=== PATIENT | female | born 1985 | race Caucasian/White ===

== ENCOUNTER → 2017-11-16 08:36 | Outpatient (BNVA) | payer MEDICARE, MEDICAID, SELFPAY | PROVIDERS: Visit Provider Psychiatry & Neurology Neurology | DX: G43.109 Migraine with aura, not intractable, without status migrainosus (principal); G43.009 Migraine without aura, not intractable, without status migrainosus | CPT/HCPCS: 99205; 99215 ==

== ENCOUNTER → 2017-12-28 13:14 | Outpatient (BNVA) | payer MEDICARE, MEDICAID, SELFPAY | PROVIDERS: PCP Family Medicine; Visit Provider Psychiatry & Neurology Neurology | DX: G43.109 Migraine with aura, not intractable, without status migrainosus (principal); G43.009 Migraine without aura, not intractable, without status migrainosus; T50.2X5A Adverse effect of carbonic-anhydrase inhibitors, benzothiadiazides and other diuretics, initial encounter; R20.2 Paresthesia of skin | CPT/HCPCS: 99214 ==

== ENCOUNTER → 2018-04-20 14:02 | Outpatient (BNVA) | payer MEDICARE, MEDICAID, SELFPAY | PROVIDERS: PCP Family Medicine; Visit Provider Nurse Practitioner Adult Health | DX: G43.009 Migraine without aura, not intractable, without status migrainosus (principal) | CPT/HCPCS: 99213 ==

== ENCOUNTER 2018-06-02 09:48 | Outpatient (REF) | payer MEDICARE, MEDICAID, SELFPAY ==
[2018-06-02 12:27] LABS: Hemoglobin A1C 5.6 % (4.5-6.2)
[2018-06-02 12:34] LABS: Glucose 88 mg/dL (70-100); TSH (W/Ref FT4) 1.78 uIU/mL (0.358-3.74)
== END 2018-06-02 10:08 ==
LOC: NCHCN 09:48
PROVIDERS: PCP Family Medicine; Visit Provider Family Medicine
DX: E03.9 Hypothyroidism, unspecified (principal); E28.2 Polycystic ovarian syndrome; R73.01 Impaired fasting glucose
CPT/HCPCS: 82947; 83036; 84443

== ENCOUNTER → 2018-06-19 10:29 | Outpatient (BNVA) | payer MEDICARE, MEDICAID, SELFPAY | PROVIDERS: PCP Family Medicine; Visit Provider Nurse Practitioner Adult Health | DX: G43.009 Migraine without aura, not intractable, without status migrainosus (principal); G43.109 Migraine with aura, not intractable, without status migrainosus | CPT/HCPCS: 99213 ==

== ENCOUNTER → 2018-12-18 11:04 | Outpatient (BNVA) | payer MEDICARE, MEDICAID, SELFPAY | PROVIDERS: PCP Family Medicine; Referring Provider Family Medicine; Visit Provider Nurse Practitioner Adult Health | DX: G43.001 Migraine without aura, not intractable, with status migrainosus (principal); R42 Dizziness and giddiness | CPT/HCPCS: 99213 ==

== ENCOUNTER → 2019-02-20 12:33 | Outpatient (BNVA) | payer MEDICARE, MEDICAID, SELFPAY | PROVIDERS: PCP Family Medicine; Referring Provider Family Medicine; Visit Provider Nurse Practitioner Adult Health | DX: G43.009 Migraine without aura, not intractable, without status migrainosus; G43.109 Migraine with aura, not intractable, without status migrainosus | CPT/HCPCS: 99213 ==

== ENCOUNTER → 2020-01-16 08:24 | Outpatient (BNVA) | payer MEDICARE, MEDICAID, SELFPAY | PROVIDERS: PCP Family Medicine; Referring Provider Family Medicine; Visit Provider Nurse Practitioner Adult Health | DX: G43.109 Migraine with aura, not intractable, without status migrainosus (principal); G43.009 Migraine without aura, not intractable, without status migrainosus | CPT/HCPCS: 99213; 99441 ==

== ENCOUNTER → 2020-09-01 12:32 | Outpatient (BNVA) | payer MEDICARE, MEDICAID, SELFPAY | PROVIDERS: PCP Family Medicine; Referring Provider Family Medicine; Visit Provider Nurse Practitioner Adult Health | DX: G43.109 Migraine with aura, not intractable, without status migrainosus (principal); G43.009 Migraine without aura, not intractable, without status migrainosus | CPT/HCPCS: 99213 ==

== ENCOUNTER 2020-09-19 14:08 | Outpatient (REF) | payer MEDICARE, MEDICAID, SELFPAY ==
[2020-09-19 19:28] LABS: Hemoglobin A1C 5.9 % (<5.7)
[2020-09-19 19:32] LABS: Anion Gap 9.7 mmol/L (3-11); BUN 13 mg/dL (7-18); CO2 22.3 mmol/L (21.0-32.0); CREATININE 0.8 mg/dL (0.55-1.02); Calcium 8.8 mg/dL (8.5-10.1); Chloride 109 mmol/L (98-107); Glucose 108 mg/dL (74-106); Sodium 141 mmol/L (136-145); TSH (W/Ref FT4) 0.79 uIU/mL (0.36-3.74)
== END 2020-09-19 14:09 | disposition home or self-care (01) ==
LOC: NCHCN 14:08
PROVIDERS: PCP Family Medicine; Visit Provider Family Medicine
DX: E03.9 Hypothyroidism, unspecified (principal); E66.9 Obesity, unspecified; R73.09 Other abnormal glucose
CPT/HCPCS: 80048; 83036; 84443

== ENCOUNTER → 2020-10-28 10:15 | Outpatient (BNVA) | payer MEDICARE, MEDICAID, SELFPAY | PROVIDERS: PCP Family Medicine; Referring Provider Family Medicine; Visit Provider Psychiatry & Neurology Neurology | DX: G43.109 Migraine with aura, not intractable, without status migrainosus (principal); G43.009 Migraine without aura, not intractable, without status migrainosus; E03.9 Hypothyroidism, unspecified | CPT/HCPCS: 99213 ==

== ENCOUNTER 2021-02-22 08:05 | Inpatient (IN) | payer MEDICARE, MEDICAID, SELFPAY ==
[2021-02-22] VITALS (46 sets, daily range): BP systolic 120–170; BP diastolic 71–119; PULSE 95–144; RESP 14–33; TEMP 36.2–38.2; O2SAT 92–99; BMI 38.3
--- NOTE | 2021-02-22 08:22 | W.ED.GENAD ---
Discharge Plan Disposition Patient Disposition: [facility] INPATIENT Condition: Serious Discharge Details Clinical Impression: Acute appendicitis Primary Care Provider: Cora Philip ED Provider: Saravanan Ascencio Home Meds and New Rx's Prescriptions: No Action magnesium oxide 400 mg (241.3 mg magnesium) tablet 400 mg PO DAILY RF: 0 vitamin B complex [B Complex 1] tablet 1 tab PO DAILY RF: 0 prochlorperazine maleate 5 mg tablet 5 mg PO Q8H PRN PRN (Reason: anxiety) Qty: 60 RF: 0 acetazolamide 250 mg tablet See Rx Instructions PO BID Qty: 270 RF: 3 levothyroxine 88 MCG tablet 88 mcg PO DAILY RF: 0 Hair,Skin and Nails 1 EACH tablet 1 ea PO DAILY RF: 0 levalbuterol tartrate [Xopenex HFA] 15 GM HFA aerosol inhaler 45 mcg Inhalation Q6H PRN RF: 0 omega-3 fatty acids-fish oil 1 EACH capsule 1 ea PO DAILY RF: 0 Medical Decision Making 35-year-old female who reports bilateral lower abdominal pain, worsening, mild constipation, over the past 2 days. Unfortunately she is a rather vague and poor historian. She does appear uncomfortable. Blood pressure is elevated, pulse in the 140s, she is afebrile. Diffuse lower abdominal discomfort but there is no McBurney point tenderness, Virgen sign, rebound or rigidity. Given her body habitus, exam is somewhat difficult. Fortunately ultrasound is here and will obtain ultrasound pelvic-transvaginal for better evaluation of potential torsion. Differential includes but includes torsion, appendicitis, diverticulitis, colitis, UTI,, nephritis, etc. Will obtain IV access and routine laboratory values Ultrasound is unremarkable Patient receiving 1 L IV fluid and she did get 30 IV Toradol. Laboratory values reveal a leukocytosis of 17.46. Urinalysis unremarkable. In the setting of leukocytosis, lower abdominal pain, will obtain CT of the abdomen and pelvis. Heart rate now 118. Patient reports pain is tolerable with the Toradol given. CT imaging reveals acute appendicitis. Patient given IV Zosyn. Patient reports pain is returning. 2 mg IV morphine given. Case discussed with Dr. Mccormick who is agreeable to admission and will personally evaluate the patient in the ER. Obtained a rapid COVID swab. This documentation was generated using [employer] system, please disregard any oddities of phrase or misspellings. Medical Records Medical records reviewed: Yes I reviewed the patient's medical records. Imaging Data Radiologic Study: Attestation: I personally reviewed and interpreted this imaging study as follows: Imaging: Ultrasound Radiologist's impression: PROCEDURE INFORMATION: Exam: US Retroperitoneal Limited, Kidneys Exam date and time: 02/22/2021 8:39 AM Age: 35 years old Clinical indication: Abdominal pain; Lower abdomen TECHNIQUE: Imaging protocol: Real-time ultrasound of the retroperitoneum with image documentation. Examination was focused on the kidneys. COMPARISON: No relevant prior studies available. FINDINGS: Right kidney: Right kidney measures 9.9 cm in length. No hydronephrosis. Left kidney: Incompletely visualized left kidney measures 10.1 cm in length. No hydronephrosis. Bladder: Nondistended and not visualized. IMPRESSION: No acute sonographic abnormality in the visualized kidneys. PROCEDURE INFORMATION: Exam: US Pelvis Complete, Transabdominal and US Pelvis, Transvaginal Exam date and time: 02/22/2021 8:39 AM Age: 35 years old Clinical indication: Abdominal pain; Lower abdomen TECHNIQUE: Imaging protocol: Real-time transabdominal and transvaginal pelvic ultrasound (complete) with image documentation. Transvaginal imaging was used for better evaluation of the endometrium, adnexa, and/or cervix. JONATAN CHOI Preliminary Radiology Report HAT AND CAP OPENER (QA) DISCREPANCY? If there is a discrepancy between the preliminary and final interpretation, please notify ad via [email or web address]. If you do not have access to our QA portal, call our QA team at [phone] CONFIDENTIALITY STATEMENT This report is intended only for the use of the referring physician, and only in accordance with law, If you received this in error, call [phone] Page 2 of 2 COMPARISON: No relevant prior studies available. FINDINGS: Uterus: Endometrium measures 6 mm in diameter and contains a 2 mm cyst. Uterus measures 6.8 x 4.4 x 5.0 cm. Cervix: Nabothian cysts Right ovary/adnexa: Right ovary measures 2.9 x 2.5 by 3.2 cm. Subcentimeter follicles. Right ovarian blood flow demonstrated. Left ovary/adnexa: Left ovary measures 2.5 x 2.4 x 3.1 cm. Multiple follicles. Left ovarian blood flow demonstrated. Intraperitoneal space: No significant free fluid. IMPRESSION: No significant sonographic abnormality in the visualized pelvis. Radiologic Study #2: Attestation: I personally reviewed and interpreted this imaging study as follows: Imaging: CT Scan Radiologist's impression: PROCEDURE INFORMATION: Exam: CT Abdomen And Pelvis With Contrast Exam date and time: 02/22/2021 9:49 AM Age: 35 years old Clinical indication: Other: Low abd pain, wbc 17, constipation TECHNIQUE: Imaging protocol: Computed tomography of the abdomen and pelvis with contrast. Radiation optimization: All CT scans at this facility use at least one of these dose optimization techniques: automated exposure control; mA and/or kV adjustment per patient size (includes targeted exams where dose is matched to clinical indication); or iterative reconstruction. Contrast material: OMNIPAQUE 350; Contrast volume: 125 ml; Contrast route: INTRAVENOUS (IV); COMPARISON: US PELVIS TRANSVAGINAL 02/22/2021 8:52 AM FINDINGS: Lungs: Mild interstitial prominence. Liver: Fatty infiltration of the liver. Gallbladder and bile ducts: Dilated gallbladder, without biliary ductal dilatation. Pancreas: No pancreatic mass or ductal dilatation. Spleen: No splenomegaly. Adrenal glands: Unremarkable adrenals. Kidneys and ureters: Normal renal morphology. Mild dilatation of the right pelvicaliceal system, without significant ureteral dilatation. Stomach and bowel: Mild wall thickening in the nondistended stomach. Mild bowel dilatation without a focal transition zone. Prominent stool. Diverticula, without pericolonic inflammation. Appendix: Enlarged appendix measuring 11 mm in diameter with wall thickening , prominent infiltration of periappendiceal fat, and surrounding fluid; consistent with acute appendicitis. Intraperitoneal space: Small quantity of free fluid. Vasculature: Unrema normal caliber of the abdominal aorta. JONATAN CHOI Preliminary Radiology Report HAT AND CAP OPENER (QA) DISCREPANCY? If there is a discrepancy between the preliminary and final interpretation, please notify [facility] via [email or web address]. If you do not have access to our QA portal, call our QA team at [phone] CONFIDENTIALITY STATEMENT This report is intended only for the use of the referring physician, and only in accordance with law, If you received this in error, call [phone] Page 2 of 2 Lymph nodes: Subcentimeter lymph nodes. Urinary bladder: Nondistended bladder with minimal wall thickening. Reproductive: Follicular change in the ovaries. Bones/joints: Schmorl's nodes, vertebral endplate irregularity, and marginal osteophytes. IMPRESSION: 1. Enlarged appendix measuring 11 mm in diameter with wall thickening , prominent infiltration of periappendiceal fat, and surrounding fluid; consistent with acute appendicitis. 2. Mild dilatation of the right pelvicaliceal system, without significant ureteral dilatation. 3. Additional findings as described above Lab Data Lab results reviewed: Yes I reviewed the patient's lab results. Labs: Laboratory Tests Range/Units 02/22/21 02/22/21 02/22/21 08:45 08:45 10:20 WBC (4.4-10.8) 10^3/uL 17.46 H RBC (3.93-5.22) 10^6/uL 5.25 H Hgb (11.2-15.7) g/dL 14.5 Hct (36.0-46.0) % 45.6 MCV (80-95) fL 86.9 MCH (27.0-33.0) pg 27.6 MCHC (32.0-36.0) % 31.8 L RDW (11.7-14.6) % 12.8 Plt Count (130-400) 10^3/uL MPV (8.0-11.0) fL Immature Gran % 0.5 Neutrophils % 85.3 Lymphocytes % 9.1 Monocytes % 4.6 Eosinophils % 0.2 Basophils % 0.3 Nucleated RBC % % 0 Absolute Neutrophils (1.2-6.7) 10^3/uL 14.89 H Absolute Lymphocytes (1.2-3.4) 10^3/uL 1.59 Absolute Monocytes (0.1-0.8) 10^3/uL 0.80 Absolute Eosinophils (0.0-0.7) 10^3/uL 0.03 Absolute Basophils (0.0-0.2) 10^3/uL 0.05 RBC Morphology Normal Sodium (136-145) mmol/L 138 Potassium (3.5-5.1) mmol/L 3.5 Chloride (98-107) mmol/L 103 Carbon Dioxide (21.0-32.0) mmol/L 20.3 L Anion Gap (3-11) mmol/L 14.7 H BUN (7-18) mg/dL 9 Creatinine (0.55-1.02) mg/dL 1.0 Estimated GFR/1.73 m2 (mL/min/1.73m2) >= 60.00 Glucose (74-106) mg/dL 191 H Calcium (8.5-10.1) mg/dL 8.9 Total Bilirubin (0.2-1.0) mg/dL 0.9 AST (15-37) U/L 22 ALT (14-59) U/L 60 H Alkaline Phosphatase (46-116) U/L 85 Total Protein (6.4-8.2) g/dL 8.9 H Albumin (3.4-5.0) g/dL 4.3 Lipase (73-393) U/L 53 Urine Color (Yellow) Yellow Urine Clarity (Clear) Clear Urine pH (5-8) 6.5 Ur Specific [place] (1.005-1.025) 1.025 Urine Protein (Negative) mg/dL Negative Urine Ketones (Negative) mg/dL Trace H Urine Blood (Negative) Trace-intact H Urine Nitrite (Negative) Negative Urine Bilirubin (Negative) Negative Urine Urobilinogen (Up TO 0.2) EU/dL 1.0 H Ur Leukocyte Esterase (Negative) Negative Urine RBC (0-2) HPF 0-2 Urine WBC (0-5) HPF Negative Ur Epithelial Cells (Negative) HPF Few Urine Crystals (Negative) HPF Negative Urine Bacteria (Negative) HPF Negative Urine Casts (Negative) LPF Negative Urine Mucus (Negative) Moderate Ur Culture Indicated? No Urine Glucose (Negative) mg/dL Negative COVID-19 Source Range/Units 02/22/21 11:35 WBC (4.4-10.8) 10^3/uL RBC (3.93-5.22) 10^6/uL Hgb (11.2-15.7) g/dL Hct (36.0-46.0) % MCV (80-95) fL MCH (27.0-33.0) pg MCHC (32.0-36.0) % RDW (11.7-14.6) % Plt Count (130-400) 10^3/uL MPV (8.0-11.0) fL Immature Gran % Neutrophils % Lymphocytes % Monocytes % Eosinophils % Basophils % Nucleated RBC % % Absolute Neutrophils (1.2-6.7) 10^3/uL Absolute Lymphocytes (1.2-3.4) 10^3/uL Absolute Monocytes (0.1-0.8) 10^3/uL Absolute Eosinophils (0.0-0.7) 10^3/uL Absolute Basophils (0.0-0.2) 10^3/uL RBC Morphology Sodium (136-145) mmol/L Potassium (3.5-5.1) mmol/L Chloride (98-107) mmol/L Carbon Dioxide (21.0-32.0) mmol/L Anion Gap (3-11) mmol/L BUN (7-18) mg/dL Creatinine (0.55-1.02) mg/dL Estimated GFR/1.73 m2 (mL/min/1.73m2) Glucose (74-106) mg/dL Calcium (8.5-10.1) mg/dL Total Bilirubin (0.2-1.0) mg/dL AST (15-37) U/L ALT (14-59) U/L Alkaline Phosphatase (46-116) U/L Total Protein (6.4-8.2) g/dL Albumin (3.4-5.0) g/dL Lipase (73-393) U/L Urine Color (Yellow) Urine Clarity (Clear) Urine pH (5-8) Ur Specific [place] (1.005-1.025) Urine Protein (Negative) mg/dL Urine Ketones (Negative) mg/dL Urine Blood (Negative) Urine Nitrite (Negative) Urine Bilirubin (Negative) Urine Urobilinogen (Up TO 0.2) EU/dL Ur Leukocyte Esterase (Negative) Urine RBC (0-2) HPF Urine WBC (0-5) HPF Ur Epithelial Cells (Negative) HPF Urine Crystals (Negative) HPF Urine Bacteria (Negative) HPF Urine Casts (Negative) LPF Urine Mucus (Negative) Ur Culture Indicated? Urine Glucose (Negative) mg/dL COVID-19 Source Nasal/Nares HPI General Mode of arrival: ambulatory. Date/Time Provider Initiated Documentation: 02/22/21 08:11. Limitations to Documentation: no limitations. Information obtained by: patient. HPI Narrative: This is a 35-year-old female, past medical history that includes asthma, PCOS, depression, hypothyroidism, obesity, migraines, presenting to the ER for 2-day history of lower abdominal, bilateral groin pain that she states radiates to her rectum especially when trying to move her bowels. Patient states all the muscles feel tight. She denies recent illness or trauma. She is unsure whether or not she has had a fever. Denied chills, chest pain, shortness of breath, upper abdominal pain, vomiting. Does report mild nausea. Reports chronic low back pain that is unchanged reports that her last menstrual cycle was approximately 1 month ago. Denies any abnormal vaginal bleeding or discharge. Patient states that she is not sexually active and has never been sexually active. Patient reports that her last normal bowel movement was 3 days ago, 2 days ago had a small, firm, hard, painful bowel movement. Denies any blood in her stool. Patient took a single Gas-X yesterday without any relief of her symptoms. Patient reports the pain is moderate to severe. Denies previous abdominal surgery. Denies any symptoms previous like this. Unfortunately she is a rather vague and poor historian, has a difficult time articulating exactly what she is feeling. Related Data Home Medications Medication Instructions Recorded Confirmed levalbuterol tartrate [Xopenex Hfa] 45 mcg INHALATION Q6H PRN inhaler 10/03/17 02/22/21 levothyroxine 88 mcg PO DAILY tab-cap 10/03/17 02/22/21 multivitamin with minerals [Hair, 1 ea PO DAILY 10/03/17 02/22/21 Skin And Nails] omega-3 fatty acids-fish oil 1 ea PO DAILY 10/03/17 02/22/21 magnesium oxide 400 mg (241.3 mg 400 mg PO DAILY tab 11/16/17 02/22/21 magnesium) tablet vitamin B complex 1 tab PO DAILY 04/20/18 02/22/21 prochlorperazine maleate 5 mg 5 mg PO Q8H PRN PRN #60 tab 09/01/20 02/22/21 tablet acetazolamide 250 mg tablet See Rx Instructions PO BID #270 tab 10/28/20 02/22/21 Previous Rx's Medication Instructions Recorded prochlorperazine maleate 5 mg 5 mg PO Q8H PRN PRN #60 tab 09/01/20 tablet acetazolamide 250 mg tablet See Rx Instructions PO BID #270 tab 10/28/20 Allergies Allergy/AdvReac Type Severity Reaction Status Date / Time house dust Allergy Mild Verified 02/22/21 08:24 pollen extracts Allergy Unverified 02/22/21 08:24 wheat AdvReac Intermediate Rash Verified 02/22/21 08:24 Review of Systems Constitutional Constitutional: Denies fatigue and Reports fever(s) (Unknown) Cardiovascular Cardiovascular: Denies chest pain and Denies dyspnea Respiratory Respiratory: Denies cough and Denies dyspnea Gastrointestinal Gastrointestinal: Reports abdominal pain, Reports constipation, Denies diarrhea, Reports nausea and Denies vomiting Genitourinary Genitourinary: Denies abnormal vaginal bleeding, Denies dysuria and Denies vaginal discharge Musculoskeletal Musculoskeletal: Reports back pain Integumentary/Breasts Skin/Breast: Denies rash Endocrine Endocrine: Denies fatigue Hematologic/Lymphatic Hematologic/Lymphatic: Denies easy bleeding and Denies easy bruising PFSH All Active Problems (Updated 02/22/21 @ 12:10 by SHAWN Neville) Acute appendicitis (Acute) Gluten intolerance (Chronic) Depression (Chronic) Polycystic ovarian syndrome (Chronic) Asthma (Chronic) Hypothyroidism (Chronic) Obesity (BMI 30-39.9) (Chronic) Migraine headache without aura (Chronic) Migraine aura without headache (Chronic) Surgical History Other dental procedure status wisdom tooth extraction Family History Mother Headache Diabetes Hypertension Thyroid disease Depression Fibromyalgia Social History Smoking/Tobacco Use Status: Never Smoking risk assessment performed?: Yes Alcohol Intake: current Alcohol Intake frequency: holidays/special occasions only Drug use: Never Substance use type: does not use Household members: family Housing: apartment Current gender identity: female How often do you get together with friends or relatives?: decline to answer Additional Social history: She lives in an apartment below her mother. She does not drive (has no car). Exam Const General: cooperative, healthy appearing, no acute distress and other (Appears uncomfortable) Orientation: alert and awake HENKY Head: normal to inspection, normocephalic and atraumatic Face and sinus: normal facial exam Mouth: moist mucous membranes Eyes General: appearance normal, both eyes and all related structures Conjunctivae: conjunctivae normal Neck Neck: normal visual inspection, trachea midline and supple Resp Effort & Inspection: normal respiratory effort and able to speak in complete sentences Auscultation: clear to auscultation bilaterally Cardio Rate: regular rate Rhythm: regular rhythm GI Inspection: normal to inspection and obesity Palpation: soft, not firm, no guarding, no pulsatile masses and tender (Diffuse, mild, lower) Auscultation: normal bowel sounds Back/Spine/Pelvis Back: No back tenderness Skin General skin exam: no rashes or lesions noted Neuro General: patient alert, patient awake, moves all extremities and no focal motor deficits Cognition: normal cognition Speech: speech normal Gait: normal gait Sensory Exam: no sensory deficits noted Psych Appearance: grossly normal Mental Status: mental status grossly normal Critical Care Time Critical Care Time Critical Care Time: Yes Total Critical Care Time: 35 Attestation: Upon my evaluation, this patient had a high probability of clinically significant, life-threatening deterioration due to their current medical conditions, which required my direct attention, intervention, and personal management. I have personally provided greater than 30 minutes of critical care time exclusive of the time spend on separately billable procedures. Time includes obtaining a history, examining the patient, pulse oximetry, review of laboratory data, radiology results, discussion with consultants, arranging urgent treatment with development of a management plan, evaluation of patient's response to treatment, and monitoring for potential decompensation. Interventions were performed as documented above.
--- NOTE | 2021-02-22 08:30 | DI.US_ITS ---
Exam(s) US PELVIS TRANSVAGINAL EXAM: US PELVIS TRANSVAGINAL CLINICAL HISTORY: pelvic pain TECHNIQUE: Transabdominal and transvaginal imaging was performed using standard protocol. COMPARISON: No exams were available for comparison FINDINGS: KIDNEYS: Kidneys are symmetric in size. No evidence of renal calculi. No evidence of hydronephrosis. No renal mass or cyst identified. Transabdominal images are limited by lack of bladder distention. UTERUS: Anteverted. 6.8 x 4.4 x 5 cm. Endometrium: 6 millimeters Myometrium: Unremarkable. Cervix: Tiny nabothian cyst. OVARIES: Right: Cyst or mass: None. Left: Cyst or mass: None. DOPPLER: Color: Symmetric and uniform flow to both ovaries. No hyperemia. Duplex: Normal ovarian arterial waveforms visualized. CUL-DE-SAC: Free fluid: None. IMPRESSION: 1. Normal-appearing uterus with endometrial stripe within normal limits. 2. Unremarkable bilateral ovaries. DATA REPOSITORY:
[2021-02-22 09:02] LABS: Abs Immature Grans 0.09 10^3/uL (0.0-0.06); Absolute Lymphocyte Count 1.59 10^3/uL (1.2-3.4); Basophils % 0.3; Eosinophils % 0.2; HCT 45.6 % (36.0-46.0); HGB 14.5 g/dL (11.2-15.7); Immature Grans % 0.5; Lymphocytes % 9.1; MCH 27.6 pg (27.0-33.0); MCHC 31.8 % (32.0-36.0); MCV 86.9 fL (80-95); Monocytes % 4.6; Neutrophils % 85.3; Nucleated RBC 0 %; RBC 5.25 10^6/uL (3.93-5.22); RDW 12.8 % (11.7-14.6); RDW-SD 40.3 fL; WBC 17.46 10^3/uL (4.4-10.8)
[2021-02-22 09:19] LABS: ALT 60 U/L (14-59); AST 22 U/L (15-37); Albumin 4.3 g/dL (3.4-5.0); Alkaline Phosphatase 85 U/L (46-116); Anion Gap 14.7 mmol/L (3-11); BUN 9 mg/dL (7-18); Bilirubin, Total 0.9 mg/dL (0.2-1.0); CO2 20.3 mmol/L (21.0-32.0); Calcium 8.9 mg/dL (8.5-10.1); Chloride 103 mmol/L (98-107); Glucose 191 mg/dL (74-106); Lipase 53 U/L (73-393); Potassium 3.5 mmol/L (3.5-5.1); Sodium 138 mmol/L (136-145); Total Protein 8.9 g/dL (6.4-8.2)
[2021-02-22] MEDS: Ketorolac 30 MG/ML VIAL IVP (09:25)
[2021-02-22] MEDS: Normal Saline 1,000 ML 1000 ML IV (09:26)
--- NOTE | 2021-02-22 09:38 | DI.VRAD_ITS ---
PROCEDURE INFORMATION: Exam: US Retroperitoneal Limited, Kidneys Exam date and time: 02/22/2021 8:39 AM Age: 35 years old Clinical indication: Abdominal pain; Lower abdomen TECHNIQUE: Imaging protocol: Real-time ultrasound of the retroperitoneum with image documentation. Examination was focused on the kidneys. COMPARISON: No relevant prior studies available. FINDINGS: Right kidney: Right kidney measures 9.9 cm in length. No hydronephrosis. Left kidney: Incompletely visualized left kidney measures 10.1 cm in length. No hydronephrosis. Bladder: Nondistended and not visualized. IMPRESSION: No acute sonographic abnormality in the visualized kidneys. PROCEDURE INFORMATION: Exam: US Pelvis Complete, Transabdominal and US Pelvis, Transvaginal Exam date and time: 02/22/2021 8:39 AM Age: 35 years old Clinical indication: Abdominal pain; Lower abdomen TECHNIQUE: Imaging protocol: Real-time transabdominal and transvaginal pelvic ultrasound (complete) with image documentation. Transvaginal imaging was used for better evaluation of the endometrium, adnexa, and/or cervix. COMPARISON: No relevant prior studies available. FINDINGS: Uterus: Endometrium measures 6 mm in diameter and contains a 2 mm cyst. Uterus measures 6.8 x 4.4 x 5.0 cm. Cervix: Nabothian cysts Right ovary/adnexa: Right ovary measures 2.9 x 2.5 by 3.2 cm. Subcentimeter follicles. Right ovarian blood flow demonstrated. Left ovary/adnexa: Left ovary measures 2.5 x 2.4 x 3.1 cm. Multiple follicles. Left ovarian blood flow demonstrated. Intraperitoneal space: No significant free fluid. IMPRESSION: No significant sonographic abnormality in the visualized pelvis. Dictated and Authenticated by: Rodolfo Jones MD. Ordering:CHEKO Coe MD
[2021-02-22 09:41] LABS: Absolute Basophil Count 0.05 10^3/uL (0.0-0.2); Absolute Eosinophil Count 0.03 10^3/uL (0.0-0.7); Absolute Neutrophil Count 14.89 10^3/uL (1.2-6.7)
--- NOTE | 2021-02-22 09:45 | DI.CT_ITS ---
Exam(s) CT ABDOMEN PELVIS W EXAM: CT ABDOMEN PELVIS W CLINICAL HISTORY: low abd pain, wbc 17, constipation. TECHNIQUE: Imaging Protocol: Axial computed tomography images with coronal and sagittal reformatted images were created and reviewed CONTRAST MATERIAL: Intravenous: Omnipaque 350 Contrast volume:125 ml Oral: no COMPARISON: No exams were available for comparison FINDINGS: ABDOMEN: Lung Bases: Normal where visualized. Liver: Moderate to severe fatty infiltration. Mild enlargement.. No measurable mass. Gallbladder and biliary tract: No radiodense calculus. Gallbladder is somewhat dilated but no wall t hickening no biliary dilatation.. Pancreas: Normal density, no abnormal calcifications or inflammatory process. Spleen: Normal. Kidneys: Normal size, contour and axis. No radiodense stones . No masses seen. There is mild mild rig ht hydronephrosis which could be secondary to the right lower quadrant inflammation. Adrenal glands: No masses seen. Abdominal Aorta: Abdominal portion non-dilated. PELVIS: Bladder: No gross wall thickening. No calculi.No focal mass. Bowel: No obstruction or bowel wall thickening. Appendix shows fluid and thickening to 11 millimeters . There is stranding in the surrounding fat, consistent with acute appendicitis. There is a small a mount of fluid in the right lower quadrant and low pelvis. No abscess or perforation. No appendicol iths visible. Distal small bowel is a shows mild dilatation and is mildly fluid filled. Peritoneal cavity: No ascites, collection.. Bones: Within normal limits for age. Reproductive organs: Within normal limits. Lymph nodes: Unremarkable. Impression: Acute appendicitis. No perforation or abscess. Small amount of right lower quadrant and cul-de-sac fluid. Mild right hydronephrosis, likely secondary to right lower quadrant inflammation. Mild react zach distal small bowel dilatation. RADIATION DOSE DELIVERED: 1,472.49mGy.cm Total DLP DATA REPOSITORY: All CT scans at this facility are submitted to the National Radiology Data Registry (NRDR) Dose Index Registry (DIR) with the [employer] (ACR). RADIATION OPTIMIZATION: All CT scans at this facility use at least one of these dose optimization te chniques: automated exposure control; mA and/or kV adjustment per patient size (includes targeted exa ms where dose is matched to clinical indication); or iterative reconstruction.
[2021-02-22 09:47] LABS: Diff Comment PLT Morph Reviewed; RBC Morphology Normal
[2021-02-22 10:28] LABS: Bilirubin Negative (Negative); Blood Trace-intact (Negative); Clarity Clear (Clear); Glucose Negative (Negative); Ketones Trace mg/dL (Negative); Leukocyte Esterase Negative (Negative); Nitrite Negative (Negative); Specific Gravity 1.025 (1.005-1.025); pH 6.5 (5-8)
[2021-02-22 10:38] LABS: Bacteria Negative HPF (Negative); C & S Indicated? No; Casts Negative LPF (Negative); Crystals Negative HPF (Negative); Epithelial Cells Few HPF (Negative); Mucus Moderate (Negative); RBC 0-2 HPF (0-2); WBC Negative HPF (0-5)
[2021-02-22] MEDS: Omnipaque 350 MG/ML 100 ML BTL IV (10:56)
[2021-02-22] MEDS: Omnipaque 350 MG/ML 50 ML BTL IV (10:57)
--- NOTE | 2021-02-22 11:12 | DI.VRAD_ITS ---
PROCEDURE INFORMATION: Exam: CT Abdomen And Pelvis With Contrast Exam date and time: 02/22/2021 9:49 AM Age: 35 years old Clinical indication: Other: Low abd pain, wbc 17, constipation TECHNIQUE: Imaging protocol: Computed tomography of the abdomen and pelvis with contrast. Radiation optimization: All CT scans at this facility use at least one of these dose optimization techniques: automated exposure control; mA and/or kV adjustment per patient size (includes targeted exams where dose is matched to clinical indication); or iterative reconstruction. Contrast material: OMNIPAQUE 350; Contrast volume: 125 ml; Contrast route: INTRAVENOUS (IV); COMPARISON: US PELVIS TRANSVAGINAL 02/22/2021 8:52 AM FINDINGS: Lungs: Mild interstitial prominence. Liver: Fatty infiltration of the liver. Gallbladder and bile ducts: Dilated gallbladder, without biliary ductal dilatation. Pancreas: No pancreatic mass or ductal dilatation. Spleen: No splenomegaly. Adrenal glands: Unremarkable adrenals. Kidneys and ureters: Normal renal morphology. Mild dilatation of the right pelvicaliceal system, without significant ureteral dilatation. Stomach and bowel: Mild wall thickening in the nondistended stomach. Mild bowel dilatation without a focal transition zone. Prominent stool. Diverticula, without pericolonic inflammation. Appendix: Enlarged appendix measuring 11 mm in diameter with wall thickening , prominent infiltration of periappendiceal fat, and surrounding fluid; consistent with acute appendicitis. Intraperitoneal space: Small quantity of free fluid. Vasculature: Unrema normal caliber of the abdominal aorta. Lymph nodes: Subcentimeter lymph nodes. Urinary bladder: Nondistended bladder with minimal wall thickening. Reproductive: Follicular change in the ovaries. Bones/joints: Schmorl's nodes, vertebral endplate irregularity, and marginal osteophytes. IMPRESSION: 1. Enlarged appendix measuring 11 mm in diameter with wall thickening , prominent infiltration of periappendiceal fat, and surrounding fluid; consistent with acute appendicitis. 2. Mild dilatation of the right pelvicaliceal system, without significant ureteral dilatation. 3. Additional findings as described above. THIS REPORT CONTAINS FINDINGS THAT MAY BE CRITICAL TO PATIENT CARE. The findings were verbally communicated via telephone conference with Saravanan Sawyer at 11:11 AM EST on 02/22/2021. The findings were acknowledged and understood. Dictated and Authenticated by: Rodolfo Jones MD. Ordering:CHEKO Coe MD
[2021-02-22] MEDS: PIPERACILLIN/TAZO 3.375 GM in Normal Saline 50 ML IVPB ×2 (11:35→20:37)
--- NOTE | 2021-02-22 11:40 | HPE_ITS ---
Date of service: 02/22/21 Assessment and Plan Assessment and plan (1) Acute appendicitis: Status: Acute Assessment and plan: Informed consent was obtained for laparoscopic possible open appendectomy today in the operating room. Further post operative disposition will be determined after the procedure. NPO w/ IVF IV Abx, on Zosyn IV Tylenol Q6h, PRN morphine, will add PO analgesics post operatively Lovenox for DVT ppx Qualifiers: Acute appendicitis type: with localized peritonitis Appendicitis gangrene presence: unspecified whether gangrene present Appendicitis perforation presence: unspecified whether perforation present Appendicitis abscess presence: unspecified whether abscess present Qualified Code(s): K35.30 - Acute appendicitis with localized peritonitis, without perforation or gangrene History of Present Illness Consults Consult date: 02/22/21 Requesting physician: Saravanan Ascencio Ernie barney: 35 year old female who presented to the emergency room this morning co mplaining of lower abdominal pain worse on the right. She denies any fevers, chills, nausea or vomiting. She last ate last evening but did not have an appetite this morning. She underwent basic laboratory studies in the ER revealing a leukocytosis of 17k and CT of the abdomen and pelvis after US phuong ging was negative. CT revealed evidence of a dilated and inflamed appendix measuring 11mm. She received a dose of Zosyn in the ER. I was asked to see the patient in regard to the above. Review of Systems Constitutional Constitutional: Reports anorexia, Denies chills, Denies fever(s) and Reports poor appetite Cardiovascular Cardiovascular: Denies lightheadedness and Denies dyspnea Respiratory Respiratory: Denies dyspnea Gastrointestinal Gastrointestinal: Reports abdominal pain, Denies diarrhea, Reports nausea and Denies vomiting PFSH All Active Problems (Updated 02/22/21 @ 14:47 by Nathalia Mccormick DO) Acute appendicitis (Acute) Gluten intolerance (Chronic) Depression (Chronic) Polycystic ovarian syndrome (Chronic) Asthma (Chronic) Hypothyroidism (Chronic) Obesity (BMI 30-39.9) (Chronic) Migraine headache without aura (Chronic) Migraine aura without headache (Chronic) Surgical History Other dental procedure status wisdom tooth extraction Family History Mother Headache Diabetes Hypertension Thyroid disease Depression Fibromyalgia Social History Smoking/Tobacco Use Status: Never Smoking risk assessment performed?: Yes Alcohol Intake: current Alcohol Intake frequency: holidays/special occasions only Drug use: Never Substance use type: does not use Household members: family Housing: apartment Current gender identity: female How often do you get together with friends or relatives?: decline to answer Additional Social history: She lives in an apartment below her mother. She does not drive (has no car). Meds Allergies and Home Medications Allergies Allergy/AdvReac Type Severity Reaction Status Date / Time house dust Allergy Mild Verified 02/22/21 08:24 pollen extracts Allergy Unverified 02/22/21 08:24 wheat AdvReac Intermediate Rash Verified 02/22/21 08:24 Home Medications Medication Instructions Recorded Confirmed Type levalbuterol tartrate [Xopenex Hfa] 45 mcg INHALATION Q6H PRN inhaler 10/03/17 02/22/21 History levothyroxine 88 mcg PO DAILY tab-cap 10/03/17 02/22/21 History multivitamin with minerals [Hair, 1 ea PO DAILY 10/03/17 02/22/21 History Skin And Nails] omega-3 fatty acids-fish oil 1 ea PO DAILY 10/03/17 02/22/21 History magnesium oxide 400 mg (241.3 mg 400 mg PO DAILY tab 11/16/17 02/22/21 History magnesium) tablet vitamin B complex 1 tab PO DAILY 04/20/18 02/22/21 History prochlorperazine maleate 5 mg 5 mg PO Q8H PRN PRN #60 tab 09/01/20 02/22/21 Rx tablet acetazolamide 250 mg tablet See Rx Instructions PO BID #270 tab 10/28/20 02/22/21 Rx Exam Const General: cooperative, healthy appearing, comfortable and no acute distress HENMA Head: normocephalic and atraumatic Resp Effort & Inspection: normal respiratory effort, no audible wheezes, no cough and no respiratory distress Cardio Rate: tachycardic Rhythm: regular rhythm GI Inspection: normal to inspection and obesity Palpation: soft, no guarding and tender in the RLQ and periumbilically Neuro General: patient alert, patient awake and patient oriented x3 Results Labs Result diagrams: 02/22/21 08:45 02/22/21 08:45 Labs: Laboratory Results - last 24 hr 02/22/21 02/22/21 02/22/21 08:45 08:45 10:20 WBC 17.46 H RBC 5.25 H Hgb 14.5 Hct 45.6 MCV 86.9 MCH 27.6 MCHC 31.8 L RDW 12.8 Plt Count MPV Immature Gran % 0.5 Neutrophils % 85.3 Lymphocytes % 9.1 Monocytes % 4.6 Eosinophils % 0.2 Basophils % 0.3 Nucleated RBC % 0 Absolute Neutrophils 14.89 H Absolute Lymphocytes 1.59 Absolute Monocytes 0.80 Absolute Eosinophils 0.03 Absolute Basophils 0.05 RBC Morphology Normal Sodium 138 Potassium 3.5 Chloride 103 Carbon Dioxide 20.3 L Anion Gap 14.7 H BUN 9 Creatinine 1.0 Estimated GFR/1.73 m2 >= 60.00 Glucose 191 H Calcium 8.9 Total Bilirubin 0.9 AST 22 ALT 60 H Alkaline Phosphatase 85 Total Protein 8.9 H Albumin 4.3 Lipase 53 Urine Color Yellow Urine Clarity Clear Urine pH 6.5 Ur Specific [place] 1.025 Urine Protein Negative Urine Ketones Trace H Urine Blood Trace-intact H Urine Nitrite Negative Urine Bilirubin Negative Urine Urobilinogen 1.0 H Ur Leukocyte Esterase Negative Urine RBC 0-2 Urine WBC Negative Ur Epithelial Cells Few Urine Crystals Negative Urine Bacteria Negative Urine Casts Negative Urine Mucus Moderate Ur Culture Indicated? No Urine Glucose Negative Last Vital Signs Temp 97.5 F L 02/22/21 08:14 Pulse 106 H 02/22/21 10:31 Resp 23 02/22/21 11:05 BP 135/71 02/22/21 10:31 Pulse Ox 97 02/22/21 09:35
[2021-02-22 11:46] LABS: Source Nasal/Nares
[2021-02-22] MEDS: MORPHine 2 MG/ML SYR IVP (12:17)
[2021-02-22 12:33] LABS: COVID-19 PCR Negative (Negative)
[2021-02-22] MEDS: Normal Saline 1,000 ML 75 ML IV ×2 (13:46→21:07)
[2021-02-22] MEDS: ACETAMINOPHEN 1,000 MG/100 ML BTL 400 MG IVPB ×3 (13:47→23:43)
--- NOTE | 2021-02-22 14:33 | W.ANESPRE ---
General Info Date of Service Date Performed: 02/22/21 Height: 5 ft 8 in Weight: 114.396 kg Body Mass Index (BMI): 38.3 Meds Allergies and Home Medications Allergies Allergy/AdvReac Type Severity Reaction Status Date / Time house dust Allergy Mild Verified 02/22/21 08:24 pollen extracts Allergy Unverified 02/22/21 08:24 wheat AdvReac Intermediate Rash Verified 02/22/21 08:24 Home Medication Medication Instructions Recorded levalbuterol tartrate [Xopenex Hfa] 45 mcg INHALATION Q6H PRN inhaler 10/03/17 levothyroxine 88 mcg PO DAILY tab-cap 10/03/17 multivitamin with minerals [Hair, 1 ea PO DAILY 10/03/17 Skin And Nails] omega-3 fatty acids-fish oil 1 ea PO DAILY 10/03/17 magnesium oxide 400 mg (241.3 mg 400 mg PO DAILY tab 11/16/17 magnesium) tablet vitamin B complex 1 tab PO DAILY 04/20/18 prochlorperazine maleate 5 mg 5 mg PO Q8H PRN PRN #60 tab 09/01/20 tablet acetazolamide 250 mg tablet See Rx Instructions PO BID #270 tab 10/28/20 Current Visit Medications: Current Medications Generic Name Dose Route Start Last Admin Trade Name Freq PRN Reason Stop Dose Admin Sodium Chloride 500 mls @ 0 mls/hr 02/22/21 12:06 Saline 500ml Bag IV PRN PRN As Directed Sodium Chloride 1,000 mls @ 75 mls/hr 02/22/21 12:15 02/22/21 13:46 Saline 1000ml Bag IV 75 mls/hr INFUSION JONATHAN Administration Acetaminophen 1,000 mg in 100 mls @ 400 mls/hr 02/22/21 12:00 02/22/21 13:47 Ofirmev IVPB 400 mls/hr Q6H JONATHAN Administration IV Miscellaneous Supplies 1 each 02/22/21 12:15 Iv Access IV DIRECTED JONATHAN Morphine Sulfate 2 mg 02/22/21 12:06 Morphine 2 Mg/Ml Syr IVP Q1H PRN PRN Ondansetron HCl 4 mg 02/22/21 12:06 Ondansetron 4 Mg/2 Ml Vial IVP Q4H PRN PRN Sodium Chloride 0 ml 02/22/21 12:06 Normal Saline Flush 10 Ml Syr IVP PRN PRN PFSH Active Problems Active Problems: Problem Status Onset Code Acute appendicitis K35.80 Gluten intolerance K90.41 Depression F32.9 Polycystic ovarian syndrome E28.2 Asthma J45.909 Hypothyroidism E03.9 Obesity (BMI 30-39.9) E66.9 Migraine headache without aura G43.009 Migraine aura without headache G43.109 Surgical History Surgical History Other dental procedure status wisdom tooth extraction Tobacco Smoking/Tobacco Use Status: Never Alcohol Alcohol Intake: current Alcohol intake frequency: holidays/special occasions only Substance Use Substance use: Never Substance use type: does not use Vital Signs and Lab Results Vital Signs Most Recent Vital Signs in EMR: Most Recent Vital Signs Temp Pulse Resp BP Pulse Ox 38.2 C H 133 H 18 164/100 H 97 02/22/21 13:47 02/22/21 13:03 02/22/21 13:03 02/22/21 13:15 02/22/21 13:03 Point of Care Results Point of Care Results: POC- Test(urine) Negative 02/22/21 10:25 Lab Results Result Diagrams: 02/22/21 08:45 02/22/21 08:45 Blood Type / Crossmatch: No Data to Display Complete Blood Count: White Blood Count 17.46 10^3/uL (4.4-10.8) H 02/22/21 08:45 02/22/21 Red Blood Count 5.25 10^6/uL (3.93-5.22) H 02/22/21 08:45 02/22/21 Hemoglobin 14.5 g/dL (11.2-15.7) 02/22/21 08:45 02/22/21 Hematocrit 45.6 % (36.0-46.0) 02/22/21 08:45 02/22/21 Platelet Count 10^3/uL (130-400) 02/22/21 08:45 02/22/21 Complete Metabolic Panel: Sodium Level 138 mmol/L (136-145) 02/22/21 08:45 02/22/21 Potassium Level 3.5 mmol/L (3.5-5.1) 02/22/21 08:45 02/22/21 Chloride Level 103 mmol/L (98-107) 02/22/21 08:45 02/22/21 Carbon Dioxide Level 20.3 mmol/L (21.0-32.0) L 02/22/21 08:45 02/22/21 Blood Urea Nitrogen 9 mg/dL (7-18) 02/22/21 08:45 02/22/21 Creatinine 1.0 mg/dL (0.55-1.02) 02/22/21 08:45 02/22/21 Estimated GFR/1.73 m2 >= 60.00 (mL/min/1.73m2) 02/22/21 08:45 02/22/21 Calcium Level 8.9 mg/dL (8.5-10.1) 02/22/21 08:45 02/22/21 Albumin 4.3 g/dL (3.4-5.0) 02/22/21 08:45 02/22/21 Glucose Level 191 mg/dL (74-106) H 02/22/21 08:45 02/22/21 Liver Function Panel: Alanine Aminotransferase (ALT/SGPT) 60 U/L (14-59) H 02/22/21 08:45 02/22/21 Aspartate Amino Transf (AST/SGOT) 22 U/L (15-37) 02/22/21 08:45 02/22/21 Coagulation Panel: No Data to Display Cardiac Panel: No Data to Display Arterial Blood Gas: No Data to Display Venous Blood Gas: No Data to Display Pancreas Panel: Lipase 53 U/L (73-393) 02/22/21 08:45 02/22/21 Thyroid Panel: No Data to Display Infectious Disease: Coronavirus (COVID-19)(PCR) Negative (Negative) 02/22/21 11:35 02/22/21 Coronavirus 2019 Source Nasal/Nares 02/22/21 11:35 02/22/21 Blood Cultures: No Data to Display Toxicology Panel: No Data to Display Panel: No Data to Display Imaging and Studies Imaging and Studies Study information below may be from another EMR and interpreted by another provider. Please see original notes in EMR for more complete details. Echocardiogram Summary: 05/11/13: FINDINGS: LEFT VENTRICLE/LVEF: Normal in size and systolic function. The ejection fraction is 65%. Anesthesia Assessment and Plan Anesthesia History Personal History: No History of Anesthesia Complications Family History: No Family History of Anesthesia Complications Exercise Tolerance Exercise Tolerance: Metabolic Equivalents>4 Pertinent Negatives Pertinent Negatives: No Symptoms of GERD and No Major Cardiovascular Symptoms or Complaints Cardiac & Pulmonary Exam Cardiac Exam: Normal S1/S2 Heart Sounds Pulmonary Exam: Clear Bilateral Breath Sounds Implantable Cardiac Device Does patient have a Pacemaker or an ICD?: No Airway Exam Known Difficult Airway: No Mallampati Class: 3 Mouth Opening: Narrow (< 3cm) Thyromental Distance: Greater than 3 cm Neck Range of Motion: Full ROM Neck Circumference: Thick Teeth Condition: Normal Dentition ASA Classification ASA Score: ASA 2 Emergency Case?: Yes NPO Status NPO Status: NPO Clears >2 hours, Solids >8 hours Status Status: Negative HCG Anesthesia Plan Resuscitation Status: Full Code Anesthesia Technique: General Anesthesia Airway Planned: Endotracheal Tube Monitors Used: Standard Monitors
[2021-02-22] MEDS: Bupivacaine 0.25% Pres-Free 30 ML VIAL (15:34)
--- NOTE | 2021-02-22 16:30 | APP_PTH ---
PATIENT: Monique Velasquez LOC: [id number] AGE/SX: 35/F ROOM: 230 RE02/22/[address]: Nathalia Mccormick DO : 1985 BED: A DIS: 02/24/2021 SPEC #: [id number] RECD: 02/23/21 12:37 STATUS: VADIM REQ #: [id number] JD: 02/22/21 16:[address]: Nathalia Mccormick DEPT: Surgical Specimen RECD BY: Nela Salazar ENTERED: 02/23/21 12:38 SP TYPE: Appendix OTHR DR: Cora Philip Tissues: 1 - APPENDIX NOT INCIDENTAL Procedures: GROSS AND MICRO LEVEL 3 Comments: [id number]
--- NOTE | 2021-02-22 17:01 | W.PM.OP ---
Date of service: 02/22/21 Time of Service: 17:01 Operative Note Operative Note DATE OF PROCEDURE: 02/22/21 PRE-OP DIAGNOSIS: acute appendicitis POST-OP DIAGNOSIS: other ruptured appedicitis PROCEDURE: laparoscopic appendectomy SURGEON: Nathalia Mccormick ANESTHESIA TYPE: Local By Surgeon and General LMA/ETT Refer to Anesthesia Record ESTIMATED BLOOD LOSS: 75 PATHOLOGY: other (appendix) COMPLICATIONS: None Patient was transported to: PACU Patient's condition: stable Implants: none Indications: Patient presented to the emergency department where she underwent a CAT scan of the abdomen revealing evidence of acute appendicitis. Informed consent was obtained after explaining all risks benefits and alternatives for laparoscopic possible open appendectomy. Findings: suppurative fluid in the right lower quadrant with associated phlegmon Procedure Description: Patient was taken to the operating room and placed on the operating table in supine position. After taking care to ensure all dependent areas were padded general anesthesia was initiated. Patient received IV antibiotics prior to the operating room therefore no further antibiotics were necessary at the time of the case. The patient was then prepped and draped in the usual sterile fashion. A combination of Marcaine and Exparel was used for local anesthetic. Local anesthesia was injected into the infraumbilical tissues which were then incised with an 11 blade scalpel. Dissection was carried down to the fascia using a combination of both electrocautery and blood dissection. Due to the patient?s large body habitus this portion of the case was somewhat challenging. Once the entry into the abdominal cavity was confirmed a 12mm port was placed in the abdomen was insufflated. The abdomen was inspected and there was some suppurative appearing fluid in the right lower quadrant. Next, 2-5 mm ports were placed in a similar fashion under direct visualization with one in the suprapubic area and one in the left lower quadrant. The free fluid was suctioned out for better visualization. Next, using two blunt graspers the appendix was dissected free of the surrounding tissues. Using the Ligasure device the mesoappendix was transected hemostatically. A purple 45 mm staple load was used to transect appendix at its base. The appendix was placed into an Endo catch bag and removed through the 12mm trochar site. The 2-5mm ports were removed under direct visualization and appeared to be hemostatic. The umbilical port site was closed with an O Vicryl in a figure of eight fashion. All skin incisions were closed with Monocryl and covered with skin glue. All needle, sponge and instrument counts were correct times two at the end of the procedure. The patient tolerated the procedure well and was transferred to PACU in stable condition.
--- NOTE | 2021-02-22 17:21 | W.ANESPOSTOP ---
Postoperative Evaluation Date, Time and Location Date Performed: 02/22/21 Time Performed: 17:21 Patient Location: PACU Vital Signs Most Recent Imported Vital Signs: Most Recent Vital Signs Temp Pulse Resp BP Pulse Ox 36.2 C L 95 H 16 124/71 96 02/22/21 17:15 02/22/21 17:15 02/22/21 17:15 02/22/21 17:15 02/22/21 17:15 Pain Score Most Recent Pain Score: Most Recent Pain Score Pain Level 0 02/22/21 14:42 Assessment Mental Status: Arousable with meaningful communication Airway and Respiratory Function: Patent airway with normal (patient baseline) respiratory exam Cardiovascular Function: Hemodynamically Stable Hydration Status: Adequately Hydrated Nausea & Vomiting: No Nausea or Vomiting Pain: Pt. Denies Any Pain Peripheral Nerve Block: Patient did not receive a nerve block
--- NOTE | 2021-02-22 17:48 | NUR.NOTE ---
Nursing Note: At approximately 1748 on 02/22/21, this RN called the pt.'s mother, Phuong (on HIPAA), to inform her that the pt. had arrived back on Med/Surg from the OR following the laparoscopic appendectomy. Pt.'s mother was updated regarding how the surgery went and how the pt. was doing. RN informed pt.'s mother that they could call with any concerns or questions and that once the pt. was more alert that the RN would have the pt. call their mother. Pt.'s mother verbalized understanding, presented with no questions, thanked the RN for the call, and then hung up. RN will reassess as necessary.
[2021-02-22] MEDS: Normal Saline Flush 10 ML SYR IVP (20:38)
[2021-02-23 02:41] VITALS: BP 112/77; PULSE 90; RESP 16; TEMP 37.2; O2SAT 96
[2021-02-23] MEDS: PIPERACILLIN/TAZO 3.375 GM in Normal Saline 50 ML IVPB ×4 (02:50→20:10)
[2021-02-23] MEDS: ACETAMINOPHEN 1,000 MG/100 ML BTL 400 MG IVPB ×2 (05:40→11:36)
[2021-02-23 07:28] LABS: Abs Immature Grans 0.08 10^3/uL (0.0-0.06); Absolute Basophil Count 0.02 10^3/uL (0.0-0.2); Absolute Lymphocyte Count 1.33 10^3/uL (1.2-3.4); Absolute Monocyte Count 0.78 10^3/uL (0.1-0.8); Basophils % 0.1; Immature Grans % 0.5; Lymphocytes % 7.5; MCH 27.9 pg (27.0-33.0); MCV 87.2 fL (80-95); MPV 9.6 fL (8.0-11.0); Monocytes % 4.4; Neutrophils % 87.5; Nucleated RBC 0 %; Platelet Count 242 10^3/uL (130-400); RBC 3.91 10^6/uL (3.93-5.22); RDW 13.2 % (11.7-14.6); RDW-SD 41.9 fL; WBC 17.73 10^3/uL (4.4-10.8)
[2021-02-23 07:29] LABS: Absolute Neutrophil Count 15.51 10^3/uL (1.2-6.7)
[2021-02-23 07:30] VITALS: BP 119/78; PULSE 78; RESP 15; TEMP 36.5; O2SAT 97
[2021-02-23 07:30] LABS: HGB 10.9 g/dL (11.2-15.7)
[2021-02-23 07:31] LABS: HCT 34.1 % (36.0-46.0)
[2021-02-23 07:44] LABS: Anion Gap 8.9 mmol/L (3-11); BUN 7 mg/dL (7-18); CO2 24.1 mmol/L (21.0-32.0); CREATININE 0.8 mg/dL (0.55-1.02); Calcium 7.6 mg/dL (8.5-10.1); Chloride 107 mmol/L (98-107); Glucose 142 mg/dL (74-106); Potassium 3.2 mmol/L (3.5-5.1); Sodium 140 mmol/L (136-145)
--- NOTE | 2021-02-23 12:02 | W.PM.PROGNOT ---
Date of Service Date of service: 02/23/21 Time of Service: 12:02 Assessment and Plan Assessment and plan (1) Acute appendicitis: Status: Acute Assessment and plan: POD #1 s/p lap. Appi. Leukocytosis has not improved much since yesterday. WIll continue IV antibiotics for another 24 hours. Diet: Continue on gluten free post-op diet Fluids: SL IV Activity: up and moving RESP: ISP DVT prophilaxis: Continue Lovenox Qualifiers: Acute appendicitis type: with localized peritonitis Appendicitis gangrene presence: unspecified whether gangrene present Appendicitis perforation presence: unspecified whether perforation present Appendicitis abscess presence: unspecified whether abscess present Qualified Code(s): K35.30 - Acute appendicitis with localized peritonitis, without perforation or gangrene Subjective Subjective Interval history since last seen: Ms Velasquez is doing well. Her pain is better then prior to surgery. She ate a good breakfast without N/V. She is afebrile. Exam Const General: cooperative, comfortable and no acute distress Orientation: alert and oriented x3 HENMT Head: normocephalic and atraumatic Resp Effort & Inspection: normal respiratory effort Auscultation: clear to auscultation bilaterally Cardio Rate: regular rate Rhythm: regular rhythm GI Inspection: normal to inspection Palpation: soft, no hepatosplenomegaly and tender (around her incisions. No guarding or rebound) Auscultation: normal bowel sounds Objective Last Vital Signs Temp 97.7 F 02/23/21 07:30 Pulse 78 02/23/21 07:30 Resp 15 02/23/21 07:30 BP 119/78 02/23/21 07:30 Pulse Ox 97 02/23/21 07:30 Laboratory Results - last 24 hr 02/22/21 02/23/21 02/23/21 11:35 07:10 07:10 WBC 17.73 H RBC 3.91 L Hgb 10.9 L D Hct 34.1 L D MCV 87.2 MCH 27.9 MCHC 32.0 RDW 13.2 Plt Count 242 MPV 9.6 Immature Gran % 0.5 Neutrophils % 87.5 Lymphocytes % 7.5 Monocytes % 4.4 Eosinophils % 0.0 Basophils % 0.1 Nucleated RBC % 0 Absolute Neutrophils 15.51 H Absolute Lymphocytes 1.33 Absolute Monocytes 0.78 Absolute Eosinophils 0.00 Absolute Basophils 0.02 Sodium 140 Potassium 3.2 L Chloride 107 Carbon Dioxide 24.1 Anion Gap 8.9 BUN 7 Creatinine 0.8 Estimated GFR/1.73 m2 >= 60.00 Glucose 142 H Calcium 7.6 L SARS-CoV-2 (PCR) Negative
--- NOTE | 2021-02-23 13:53 | PHA.REVIEW ---
Pharmacy Admission Review - Admission Clinical Review (Last Reviewed 02/22/21 @ 11:49 by SHAWN Neville) Acute appendicitis (Acute) house dust Allergy (Mild, Verified 02/22/21 08:24) pollen extracts Allergy (Unverified 02/22/21 08:24) wheat Adverse Reaction (Intermediate, Verified 02/22/21 08:24) Rash Resuscitation Status Full Code Height 5 ft 8 in Weight 114.396 kg - Renal Dosing Renal Dosing: BUN 7 mg/dL (7-18) 02/23/21 07:10 Creatinine 0.8 mg/dL (0.55-1.02) 02/23/21 07:10 Medications needing adjustments: Reviewed (Crcl over 130 mL/min using adjusted body weight, current meds okay.) - Anticoagulation Anticoagulation: Hgb 10.9 g/dL (11.2-15.7) L D 02/23/21 07:10 Hct 34.1 % (36.0-46.0) L D 02/23/21 07:10 Plt Count 242 10^3/uL (130-400) 02/23/21 07:10 Creatinine 0.8 mg/dL (0.55-1.02) 02/23/21 07:10 DVT Prophylaxis: Intervened (Enoxaparin mentioned in H&P for DVT prophylaxis, but not currently ordered. Will mention to provider.) Therapeutic Anticoagulation: N/A - Opiate Usage Evaluate Pain Scale/Pains Meds: Reviewed (Morphine and tramadol ordered PRN, pt has not used any so far.) Scheduled Bowel Reg ordered if on Opiates?: No - Relevant Labs Sodium 140 mmol/L (136-145) 02/23/21 07:10 Potassium 3.2 mmol/L (3.5-5.1) L 02/23/21 07:10 Chloride 107 mmol/L (98-107) 02/23/21 07:10 Electrolytes, C-Reactive P, ESR: Intervened (K+ a bit low, mentioned to provider. Provider aware/monitoring.) - DM Control DM Control: Glucose 142 mg/dL (74-106) H 02/23/21 07:10 Insulin Dosing: N/A (No DM noted in medical history, previous A1c 5.9 on 09/19/20.) - Heart Failure/RI EF%, MATILDA's, B-Blockers, Diuretics: N/A - BP Control BP Control: Blood Pressure 119/78 Blood Pressure 112/77 If elevated: Reviewed (BP was normal to elevated yesterday, but has been within normal limits so far today.) - Qtc Review If Elevated: N/A - IV to PO Switch IV Medications: Intervened (Will ask proider about changing acetaminophen from IV to PO) - Home Meds Home Med List reviewed: Reviewed Relevent Home Meds Not ordered & why?: magnesium oxide, multivitamin, omega-3, vitamin B - Current meds Current Medication Order Review: Intervened (Discontinued duplicate med orders and DI meds that had already been given.) - Comments Comments/Follow Ups: Watch BP, BG, K+, labs, for culture results and for med changes (possible need of BM meds, home meds). Antibiotic Activity - Pharmacy Antibiotic Review Pharmacy Antibiotic Activity: Reviewed, no change (Zosyn continues (day 2). BC pending.)
[2021-02-23] MEDS: Normal Saline 500 ML 30 ML IV (14:01)
[2021-02-23] MEDS: Normal Saline Flush 10 ML SYR IVP ×2 (14:02→20:10)
[2021-02-23] MEDS: Enoxaparin 40 MG/0.4 ML SYR SC (14:24)
--- NOTE | 2021-02-23 16:26 | INITIAL_ITS ---
- If Service Date Differs Date of service: 02/24/21 Time of Service: 10:51 Care Management Initial Assess REASON FOR HOSPITALIZATION:: Acute appendicitis PAST MEDICAL HISTORY/PAST SURGICAL HISTORY:: Surgical History . Other dental procedure status. wisdom tooth extraction PREVIOUS FUNCTIONAL STATUS/SOCIAL/FAMILY SUPPORTS:: Monique resides in [facility], she is independent at baseline in the community. CURRENT FUNCTIONAL STATUS:: Monique continues to be closely monitored and treated post surgically anticipate with continued stabilization she will return home with no new services. ADVANCE DIRECTIVES:: None on file. Has patient been provided with info about the portal/API?: Yes Did the patient sign up for the portal?: No CODE STATUS:: Full Code INSURANCE COVERAGE / FINANCIAL ISSUES:: Medicare. Medicaid CURRENT HOME/COMMUNITY SERVICES/EQUIPMENT:: None, currently. PRIMARY CARE PHYSICIAN:: Cora Philip POTENTIAL DISCHARGE NEEDS:: Follow up appointments. PATIENT/FAMILY EDUCATION NEEDS:: Review discharge instructions, discuss Ask Me Three. ANTICIPATED BARRIERS TO DISCHARGE:: None identified at this time. TRANSPORTATION:: Via private vehicle with family. PLAN:: Monique will return home when ready per MD. No additional services anticipated at this time. She will follow up with her PCP and plan of care as prescribed. She will transport via private vehicle with family.
[2021-02-23 16:47] VITALS: BP 121/71; PULSE 104; RESP 16; TEMP 37.7; O2SAT 97
[2021-02-23] MEDS: Acetaminophen 500 MG TAB 1000 MG PO ×2 (17:10→23:51)
[2021-02-23] MEDS: acetaZOLAMIDE 250 MG TAB 500 MG PO (20:08)
[2021-02-23 22:55] VITALS: BP 114/76; PULSE 103; RESP 16; TEMP 37.2; O2SAT 96
[2021-02-24] MEDS: PIPERACILLIN/TAZO 3.375 GM in Normal Saline 50 ML IVPB ×3 (02:16→14:32)
[2021-02-24] MEDS: Normal Saline Flush 10 ML SYR IVP ×4 (02:20→14:32)
[2021-02-24 05:32] VITALS: BP 137/84; PULSE 97; RESP 19; TEMP 37.2; O2SAT 99
[2021-02-24] MEDS: Levothyroxine 88 MCG TAB PO (05:35)
[2021-02-24] MEDS: Acetaminophen 500 MG TAB 1000 MG PO (05:35)
[2021-02-24 07:13] VITALS: BP 124/85; PULSE 89; RESP 14; TEMP 37.6; O2SAT 91
--- NOTE | 2021-02-24 07:22 | W.PM.PROGNOT ---
Documented by User: [email or web address] Calabrese 02/24/21 07:29 Date of Service Date of service: 02/24/21 Time of Service: : Assessment and Plan Assessment and plan (1) Acute appendicitis: Status: Acute Assessment and plan: POD #2 s/p lap. Appy Awaiting morning labs. Diet: Continue on gluten free post-op diet Fluids: SL IV Activity: Strongly encouraged ambulation and activity OOB RESP: ISP DVT prophylaxis: Continue Lovenox Qualifiers: Acute appendicitis type: with localized peritonitis Appendicitis abscess presence: unspecified whether abscess present Appendicitis gangrene presence: unspecified whether gangrene present Appendicitis perforation presence: unspecified whether perforation present Qualified Code(s): K35.30 - Acute appendicitis with localized peritonitis, without perforation or gangrene Subjective Subjective Interval history since last seen: Arrive with patient resting comfortably in bed, denying any pain. Patient states that she just woke up. Exam Const General: cooperative, healthy appearing and comfortable Orientation: alert and oriented x3 Resp Effort & Inspection: normal respiratory effort, no audible wheezes and no cough GI Palpation: soft, no guarding and tender Objective Last Vital Signs Temp 37.2 C 02/24/21 05:32 Pulse 97 H 02/24/21 05:32 Resp 19 02/24/21 05:32 BP 137/84 02/24/21 05:32 Pulse Ox 99 02/24/21 05:32 Laboratory Results - last 24 hr 02/23/21 02/23/21 07:10 07:10 WBC 17.73 H RBC 3.91 L Hgb 10.9 L D Hct 34.1 L D MCV 87.2 MCH 27.9 MCHC 32.0 RDW 13.2 Plt Count 242 MPV 9.6 Immature Gran % 0.5 Neutrophils % 87.5 Lymphocytes % 7.5 Monocytes % 4.4 Eosinophils % 0.0 Basophils % 0.1 Nucleated RBC % 0 Absolute Neutrophils 15.51 H Absolute Lymphocytes 1.33 Absolute Monocytes 0.78 Absolute Eosinophils 0.00 Absolute Basophils 0.02 Sodium 140 Potassium 3.2 L Chloride 107 Carbon Dioxide 24.1 Anion Gap 8.9 BUN 7 Creatinine 0.8 Estimated GFR/1.73 m2 >= 60.00 Glucose 142 H Calcium 7.6 L Documented by User: Amarilis Philip DO 02/24/21 21:02 Assessment and Plan Assessment and plan (1) Acute appendicitis: Status: Acute Assessment and plan: pt seen adn examined. Agree w/ above. Plan d/c home today. I d/w all w/ pt- wound care/activity/diet/warning signs. F/u appt made. if warnings sings occur- go to ED. Qualifiers: Acute appendicitis type: with localized peritonitis Appendicitis abscess presence: unspecified whether abscess present Appendicitis gangrene presence: unspecified whether gangrene present Appendicitis perforation presence: unspecified whether perforation present Qualified Code(s): K35.30 - Acute appendicitis with localized peritonitis, without perforation or gangrene
[2021-02-24 07:24] LABS: Abs Immature Grans 0.05 10^3/uL (0.0-0.06); Absolute Basophil Count 0.03 10^3/uL (0.0-0.2); Absolute Lymphocyte Count 2.37 10^3/uL (1.2-3.4); Basophils % 0.3; Eosinophils % 0.3; HCT 31.8 % (36.0-46.0); HGB 10.1 g/dL (11.2-15.7); Immature Grans % 0.4; Lymphocytes % 20.4; MCH 27.7 pg (27.0-33.0); MCHC 31.8 % (32.0-36.0); MCV 87.1 fL (80-95); MPV 9.7 fL (8.0-11.0); Monocytes % 6.9; Neutrophils % 71.7; Nucleated RBC 0 %; Platelet Count 221 10^3/uL (130-400); RBC 3.65 10^6/uL (3.93-5.22); RDW 13.5 % (11.7-14.6); RDW-SD 43.3 fL
[2021-02-24 07:26] LABS: Absolute Eosinophil Count 0.03 10^3/uL (0.0-0.7); Absolute Neutrophil Count 8.32 10^3/uL (1.2-6.7)
[2021-02-24 07:44] LABS: Anion Gap 9.5 mmol/L (3-11); BUN 9 mg/dL (7-18); CO2 24.5 mmol/L (21.0-32.0); CREATININE 0.9 mg/dL (0.55-1.02); Calcium 7.8 mg/dL (8.5-10.1); Chloride 109 mmol/L (98-107); Glucose 99 mg/dL (74-106); Magnesium 1.9 mg/dL (1.8-2.4); Sodium 143 mmol/L (136-145)
[2021-02-24 07:52] LABS: Potassium 2.9 mmol/L (3.5-5.1)
[2021-02-24] MEDS: acetaZOLAMIDE 250 MG TAB PO (08:43)
[2021-02-24] MEDS: IRON SUCROSE COMPLEX 200 MG in Normal Saline 100 ML 400 MG IVPB (09:41)
--- NOTE | 2021-02-24 12:16 | W.PM.DS.N ---
Date of service: 02/24/21 Time of Service: 12:16 DS: Diagnosis Discharge Diagnosis (1) Acute appendicitis: Status: Acute Discharge Plan Disposition Patient Disposition: HOME Condition: Good Discharge Details Reason For Visit: Acute Appendicitis Admit Date/Time: 02/22/21 12:06 Admit Provider: Nathalia Mccormick Attending Provider: Nathalia Mccormick [facility] Course: see addendum Home Meds and New Rx's Prescriptions: New amoxicillin-pot clavulanate [Augmentin] 875-125 mg tablet 1 tab PO BID 5 Days Qty: 10 RF: 0 Bio-K plus 50 billion cell capsule,delayed release(DR/EC) 1 cap PO DAILY Qty: 30 RF: 0 tramadol 50 mg tablet 50 mg PO Q6H PRN (Reason: pain (scale score 7-10)) Qty: 10 RF: 0 ibuprofen 600 mg tablet 600 mg PO Q6H PRN (Reason: pain (scale score 4-6)) Qty: 60 RF: 0 Continued magnesium oxide 400 mg (241.3 mg magnesium) tablet 400 mg PO DAILY RF: 0 vitamin B complex [B Complex 1] tablet 1 tab PO DAILY RF: 0 prochlorperazine maleate 5 mg tablet 5 mg PO Q8H PRN PRN (Reason: anxiety) Qty: 60 RF: 0 acetazolamide 250 mg tablet See Rx Instructions PO BID Qty: 270 RF: 3 levothyroxine 88 MCG tablet 88 mcg PO DAILY RF: 0 Hair,Skin and Nails 1 EACH tablet 1 ea PO DAILY RF: 0 levalbuterol tartrate [Xopenex HFA] 15 GM HFA aerosol inhaler 45 mcg Inhalation Q6H PRN RF: 0 omega-3 fatty acids-fish oil 1 EACH capsule 1 ea PO DAILY RF: 0 Discharge Instructions Additional Instructions: Keep an ice bag on the incision. 20 minutes on and 20 minutes off. Ice keeps the swelling down and swelling causes pain. Make sure you wrap the ice pack in a towel and don't apply directly to the skin. -No driving x1 week or of you are taking pain medications. -Follow-up with Dr. Nice on 03/06 @ 9:30am -off of work until F/u appt. -continue all other medications as previously prescribed. -gluten free diet. No other restrictions -no straining to move bowels -pain meds are very constipating: if you do not move your bowels daily take a dose of OTC milk of magnesia -It is ok to shower. No bathe, soaking, swimming or hot tubs -Keep wound clean and dry. Wash incision with soap and water daily. Pat dry, don't rub. You may find that your appetite is smaller. Eat 3-6 small meals throughout the day. It is important to drink lots of water after surgery, 6-10 glasses a day. -Use your incentive spirometry (breathing quality assurance monitor?), continue to do this 10x/hour while awake. -We do want you up walking, at least 5-6 times per day. This is very important to prevent pneumonia and blood clots. You can climb stairs, take them slowly. -No lifting over 5 pounds. This is very important to avoid developing a hernia in your incision. -You may find that you are very tired after surgery- this is normal. -yogurt daily while on antibiotics Activity:: see above Equipment/Supplies:: No Equipment Needed Diet:: gluten free Discharge Orders Discharge Orders: Discharge Order (Routine); Ordered 02/24/21 Ordered By: Amarilis Philip DS: Summary Time Spent with Patient providing and/or coordinating discharge services: Less than 30 minutes Status at Discharge Functional status at discharge: independent ambulation Overall status at discharge: patient is progressing back to baseline Mental Status: mental status grossly normal Speech and Movement: speech and movement normal Mood: congruent mood Affect: normal affect Exam Psych Mental Status: mental status grossly normal Speech and Movement: speech and movement normal Mood: congruent mood Affect: normal affect DS: Data Vitals/I&O Vitals and I&O: Vital Signs Temperature 37.6 C H 02/24/21 07:13 Temperature Source Tympanic 02/24/21 07:13 Pulse 89 02/24/21 07:13 Pulse Rhythm Regular 02/24/21 10:27 Pulse 122 H 02/22/21 12:50 Respiratory Rate 14 02/24/21 07:13 Respiratory Effort 02/24/21 10:27 Respiratory Depth Normal 02/24/21 10:27 Respiratory Pattern Normal 02/24/21 10:27 Blood Pressure 124/85 02/24/21 07:13 Blood Pressure Mean 93 02/22/21 12:31 Blood Pressure Position Sitting 02/22/21 08:14 Pulse Oximetry 91 L 02/24/21 07:13 Respiratory End-tidal CO2 32 02/22/21 17:25 Oxygen Delivery Method Room Air 02/24/21 07:13 Oxygen Flow Rate 0 02/24/21 07:13 Pain Level 1 02/24/21 07:13 Comment 02/22/21 17:35 Intake & Output 02/23/21 02/24/21 02/24/21 23:59 11:59 23:59 Intake Total 611 / 2201 1430 / 1430 Output Total 800 / 2200 1550 / 1950 400 / 1950 Balance -189 / 1 -120 / -520 -400 / -520 Intake: IV 341 / 1641 60 / 60 Oral 270 / 560 1370 / 1370 Output: Urine 800 / 2200 1550 / 1950 400 / 1950 Other: Urine Color Yellow Light Sienna Dark Sienna Urine Appearance Clear Clear Clear Urine Odor Normal None None Stool Size Small Stool Characteristics Soft Liquid Brown Voiding Methods Toilet Toilet Toilet Data Completed and Pending Labs on day of discharge: Labs from last 24 hours 02/24/21 02/24/21 07:17 07:17 WBC 11.60 H D RBC 3.65 L Hgb 10.1 L Hct 31.8 L MCV 87.1 MCH 27.7 MCHC 31.8 L RDW 13.5 Plt Count 221 MPV 9.7 Immature Gran % 0.4 Neutrophils % 71.7 Lymphocytes % 20.4 Monocytes % 6.9 Eosinophils % 0.3 Basophils % 0.3 Nucleated RBC % 0 Absolute Neutrophils 8.32 H Absolute Lymphocytes 2.37 Absolute Monocytes 0.80 Absolute Eosinophils 0.03 Absolute Basophils 0.03 Sodium 143 Potassium 2.9 L Chloride 109 H Carbon Dioxide 24.5 Anion Gap 9.5 BUN 9 Creatinine 0.9 Estimated GFR/1.73 m2 >= 60.00 Glucose 99 Calcium 7.8 L Magnesium 1.9 Preliminary micro results at discharge 02/22/21 13:58 Blood Culture - Preliminary Blood NO GROWTH 24 HOURS 02/22/21 14:01 Blood Culture - Preliminary Blood NO GROWTH 24 HOURS PFSH All Active Problems Acute appendicitis (Acute) Gluten intolerance (Chronic) Depression (Chronic) Polycystic ovarian syndrome (Chronic) Asthma (Chronic) Hypothyroidism (Chronic) Obesity (BMI 30-39.9) (Chronic) Migraine headache without aura (Chronic) Migraine aura without headache (Chronic) Surgical History Other dental procedure status wisdom tooth extraction Family History Mother Headache Diabetes Hypertension Thyroid disease Depression Fibromyalgia Social History Smoking/Tobacco Use Status: Never Smoking risk assessment performed?: Yes Alcohol Intake: current Alcohol Intake frequency: holidays/special occasions only Drug use: Never Substance use type: does not use Household members: family Housing: apartment Current gender identity: female How often do you get together with friends or relatives?: decline to answer Additional Social history: She lives in an apartment below her mother. She does not drive (has no car).
[2021-02-24] MEDS: Enoxaparin 40 MG/0.4 ML SYR SC (14:46)
--- NOTE | 2021-02-24 15:18 | CHAPLAIN ---
Monique told me about her appendectomy and plans to be discharged today. Her mom was with her, waiting to take her home. Monique's nurse came in to let her know she'll receive on more infusion of antibiotics and then be discharged home. Monique asked for some ice water.
== END 2021-02-24 15:50 | disposition home or self-care (01) | DRG 343 ==
LOC: ER 12:16 → MS 14:35
PROVIDERS: Surgery; Admitting Provider Surgery; Emergency Provider Physician Assistant; PCP Family Medicine; Visit Provider Surgery
PROC: 0DTJ4ZZ Resection of Appendix, Percutaneous Endoscopic Approach (ICD-10-PCS; CPT 44970; principal; 2021-02-22 14:35)
DX: K35.30 Acute appendicitis with localized peritonitis, without perforation or gangrene (principal); E28.2 Polycystic ovarian syndrome; J45.909 Unspecified asthma, uncomplicated; E03.9 Hypothyroidism, unspecified; E66.9 Obesity, unspecified; G43.009 Migraine without aura, not intractable, without status migrainosus; F32.A Depression, unspecified; Z68.38 Body mass index [BMI] 38.0-38.9, adult
CPT/HCPCS: 44970; 36415; 80048; 80053; 81025; 83690; 87040; 87635; 96361; 96365; 96375; 99222; 99291; J1650; 74177; 76830; 76856; 81003; 81015; 83735; 85025; 88304; J0131; J1100; J1756; J1885; J2001; J2250; J2405; J2543; J3010; J3490; Q9967

== ENCOUNTER 2021-03-02 23:30 | Emergency (ER) | payer MEDICARE, MEDICAID, SELFPAY ==
[2021-03-02 23:37] VITALS: BP 142/88; PULSE 111; RESP 18; TEMP 36.4; O2SAT 97
--- NOTE | 2021-03-02 23:47 | ED.GENADUL_ITS ---
Discharge Plan Disposition Patient Disposition: HOME Condition: Stable Discharge Details Clinical Impression: Bleeding from wound Primary Care Provider: Cora Philip ED Provider: Patrice Guevara Home Meds and New Rx's Prescriptions: Continued magnesium oxide 400 mg (241.3 mg magnesium) tablet 400 mg PO DAILY RF: 0 vitamin B complex [B Complex 1] tablet 1 tab PO DAILY RF: 0 prochlorperazine maleate 5 mg tablet 5 mg PO Q8H PRN PRN (Reason: anxiety) Qty: 60 RF: 0 acetazolamide 250 mg tablet See Rx Instructions PO BID Qty: 270 RF: 3 levothyroxine 88 MCG tablet 88 mcg PO DAILY RF: 0 Hair,Skin and Nails 1 EACH tablet 1 ea PO DAILY RF: 0 levalbuterol tartrate [Xopenex HFA] 15 GM HFA aerosol inhaler 45 mcg Inhalation Q6H PRN RF: 0 omega-3 fatty acids-fish oil 1 EACH capsule 1 ea PO DAILY RF: 0 Bio-K plus 50 billion cell capsule,delayed release(DR/EC) 1 cap PO DAILY Qty: 30 RF: 0 tramadol 50 mg tablet 50 mg PO Q6H PRN (Reason: pain (scale score 7-10)) Qty: 10 RF: 0 ibuprofen 600 mg tablet 600 mg PO Q6H PRN (Reason: pain (scale score 4-6)) Qty: 60 RF: 0 Discharge Instructions Additional Instructions: if bleeding occurs hold pressure for 10 minutes, if bleeding continues or you feel more ill return to the emergency department follow up as scheduled with general surgery Medical Decision Making 35 yo female who underwent laparscopic surgery for appendicitis on 02/22 comes in after she had bleeding from the umbilicus. She states she spilled water on herself and jumped up hitting her abdomen and then started to bleed. Denies any abdominal pain, fevers, chills, vomit. She has healing surgical site wounds with no erythema and the site near her umbilicus has dried blood, no active bleeding. I suspect she removed her scar from the site causing bleeding, will observe for bleeding recurrence no recurrent bleeding here, remains stable for d/c and advised to f/u with surgery this week as scheduled and return precautions given Differential Diagnosis Differential Diagnosis: bleeding from surgical site HPI General Mode of arrival: ambulatory . Date/Time Provider Initiated Documentation: 03/02/21 23:32 . Limitations to Documentation: no limitations . Information obtained by: patient . History of Present Illness 35 year old F presents to the emergency department with the chief complaint of bleeding near umbilicus, described as mild, and is localized to the abdomen. Patient started experiencing this hour(s) (1) and it has been now resolved. No relieving factors improve symptom(s), No exacerbating factors reported . Patient notes no other symptoms.. Patient did receive the following treatments prior to arrival, none Related Data Home Medications Medication Instructions Recorded Confirmed Hair,Skin and Nails 1 ea PO DAILY 10/03/17 02/22/21 levalbuterol tartrate [Xopenex HFA] 45 mcg INHALATION Q6H PRN inhaler 10/03/17 03/02/21 levothyroxine 88 mcg PO DAILY tab-cap 10/03/17 03/02/21 omega-3 fatty acids-fish oil 1 ea PO DAILY 10/03/17 03/02/21 magnesium oxide 400 mg (241.3 mg 400 mg PO DAILY tab 11/16/17 03/02/21 magnesium) tablet vitamin B complex 1 tab PO DAILY 04/20/18 03/02/21 prochlorperazine maleate 5 mg 5 mg PO Q8H PRN PRN #60 tab 09/01/20 03/02/21 tablet acetazolamide 250 mg tablet See Rx Instructions PO BID #270 tab 10/28/20 03/02/21 Bio-K plus 1 cap PO DAILY #30 cap 02/24/21 03/02/21 ibuprofen 600 mg PO Q6H PRN #60 tab 02/24/21 03/02/21 tramadol 50 mg PO Q6H PRN #10 tab 02/24/21 03/02/21 Previous Rx's Medication Instructions Recorded prochlorperazine maleate 5 mg 5 mg PO Q8H PRN PRN #60 tab 09/01/20 tablet acetazolamide 250 mg tablet See Rx Instructions PO BID #270 tab 10/28/20 Bio-K plus 1 cap PO DAILY #30 cap 02/24/21 ibuprofen 600 mg PO Q6H PRN #60 tab 02/24/21 tramadol 50 mg PO Q6H PRN #10 tab 02/24/21 Allergies Allergy/AdvReac Type Severity Reaction Status Date / Time house dust Allergy Mild Verified 03/02/21 23:40 pollen extracts Allergy Unverified 03/02/21 23:40 wheat AdvReac Intermediate Rash Verified 03/02/21 23:40 General Stated Complaint: Abd Prob EMMETT: 4 Review of Systems All systems reviewed & are unremarkable except as noted in HPI and below Constitutional Constitutional: Denies chills, Denies fever(s) and Denies weakness Cardiovascular Cardiovascular: Denies chest pain and Denies dyspnea Respiratory Respiratory: Denies cough and Denies dyspnea Gastrointestinal Gastrointestinal: Denies abdominal pain, Denies nausea and Denies vomiting Musculoskeletal Musculoskeletal: Denies joint swelling Neurologic Neurologic: Denies weakness PFS All Active Problems (Updated 03/02/21 @ 23:59 by Patrice Guevara MD) Bleeding from wound (Acute) Gluten intolerance (Chronic) Depression (Chronic) Polycystic ovarian syndrome (Chronic) Asthma (Chronic) Hypothyroidism (Chronic) Obesity (BMI 30-39.9) (Chronic) Migraine headache without aura (Chronic) Migraine aura without headache (Chronic) Surgical History Other dental procedure status wisdom tooth extraction Family History Mother Headache Diabetes Hypertension Thyroid disease Depression Fibromyalgia Social History Smoking/Tobacco Use Status: Never Smoking risk assessment performed?: Yes Alcohol Intake: current Alcohol Intake frequency: holidays/special occasions only Drug use: Never Substance use type: does not use Household members: family Housing: apartment Current gender identity: female How often do you get together with friends or relatives?: decline to answer Do you feel safe at home: Yes Do you feel safe in your relationship?: Yes Additional Social history: She lives in an apartment below her mother. She d oes not drive (has no car). Exam Const General: no acute distress Orientation: alert HENMT Head: normal to inspection Ears: external ears normal General nose exam: external nose normal Mouth: moist mucous membranes Eyes General: appearance normal, both eyes and all related structures Neck Neck: normal visual inspection Resp Effort & Inspection: normal respiratory effort and able to speak in complete sentences Cardio Rate: regular rate GI Palpation: soft and nontender Skin General skin exam: no rashes or lesions noted Neuro General: patient alert and patient oriented x3 Extrem General: normal to inspection Psych Mental Status: mental status grossly normal Course Vital Signs Vital signs: Vital Signs Temperature 36.4 C L 03/02/21 23:37 Pulse 111 H 03/02/21 23:37 Respiratory Rate 18 03/02/21 23:37 Blood Pressure 142/88 H 03/02/21 23:37 Pulse Oximetry 97 03/02/21 23:37 Temperature 36.4 C L 03/02/21 23:37 Pulse 111 H 03/02/21 23:37 Respiratory Rate 18 03/02/21 23:37 Respiratory Effort Non-Labored 03/02/21 23:41 Blood Pressure 142/88 H 03/02/21 23:37 Pulse Oximetry 97 03/02/21 23:37 Pain Level 3 03/02/21 23:37
[2021-03-03 00:35] VITALS: BP 142/88; PULSE 111; RESP 18; TEMP 36.4; O2SAT 97
== END 2021-03-03 00:30 | disposition home or self-care (01) ==
PROVIDERS: Emergency Provider Emergency Medicine; PCP Family Medicine
DX: L76.22 Postprocedural hemorrhage of skin and subcutaneous tissue following other procedure (principal); Z98.890 Other specified postprocedural states
CPT/HCPCS: 99281

== ENCOUNTER → 2021-03-06 09:15 | Outpatient (BNVA) | payer MEDICARE, MEDICAID, SELFPAY | PROVIDERS: PCP Family Medicine; Referring Provider Family Medicine; Visit Provider Surgery | DX: Z48.815 Encounter for surgical aftercare following surgery on the digestive system (principal); Z90.49 Acquired absence of other specified parts of digestive tract ==

== ENCOUNTER 2021-05-15 15:36 | Outpatient (REF) | payer MEDICARE, MEDICAID, SELFPAY ==
[2021-05-15 20:20] LABS: TSH (W/Ref FT4) 0.87 uIU/mL (0.36-3.74)
[2021-05-18 10:40] LABS: HIV-1/2 Ag & Ab Screen Negative (Negative)
[2021-05-18 10:50] LABS: Hepatitis C Ab w Rflx HCV PCR Negative (Negative)
== END 2021-05-15 15:37 | disposition home or self-care (01) ==
LOC: NCHCN 15:36
PROVIDERS: PCP Family Medicine; Visit Provider Family Medicine
DX: R73.03 Prediabetes (principal); E03.9 Hypothyroidism, unspecified; Z11.4 Encounter for screening for human immunodeficiency virus [HIV]; Z11.59 Encounter for screening for other viral diseases
CPT/HCPCS: 86803; 87389; 83036; 84443

== ENCOUNTER → 2021-06-18 12:55 | Outpatient (BNVA) | payer MEDICARE, MEDICAID, SELFPAY | PROVIDERS: PCP Family Medicine; Visit Provider Nurse Practitioner Adult Health | DX: G43.009 Migraine without aura, not intractable, without status migrainosus (principal); G43.109 Migraine with aura, not intractable, without status migrainosus | CPT/HCPCS: 99213 ==

== ENCOUNTER → 2021-06-25 11:53 | Outpatient (BNVA) | payer MEDICARE, MEDICAID, SELFPAY | PROVIDERS: PCP Family Medicine; Referring Provider Family Medicine; Visit Provider Nurse Practitioner Adult Health | DX: G43.009 Migraine without aura, not intractable, without status migrainosus (principal) | CPT/HCPCS: 99211 ==

== ENCOUNTER → 2021-08-05 16:43 | Outpatient (CLI) | payer MEDICARE, MEDICAID, SELFPAY ==
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
== END ==
PROVIDERS: PCP Family Medicine; Visit Provider Physician Assistant Medical
DX: M79.631 Pain in right forearm (principal)
CPT/HCPCS: 73090

== ENCOUNTER → 2021-08-20 11:02 | Outpatient (BNVA) | payer MEDICARE, MEDICAID, SELFPAY | PROVIDERS: PCP Family Medicine; Referring Provider Family Medicine; Visit Provider Nurse Practitioner Adult Health | DX: G43.009 Migraine without aura, not intractable, without status migrainosus (principal); G43.109 Migraine with aura, not intractable, without status migrainosus | CPT/HCPCS: 99213; 99214 ==

== ENCOUNTER → 2021-09-21 14:02 | Outpatient (BNVA) | payer MEDICARE, MEDICAID, SELFPAY | PROVIDERS: PCP Family Medicine; Referring Provider Family Medicine; Visit Provider Nurse Practitioner Adult Health | DX: G43.109 Migraine with aura, not intractable, without status migrainosus (principal); G43.009 Migraine without aura, not intractable, without status migrainosus; F39 Unspecified mood [affective] disorder | CPT/HCPCS: 99213 ==

== ENCOUNTER → 2021-12-03 15:16 | Outpatient (BNVA) | payer MEDICARE, MEDICAID, SELFPAY | PROVIDERS: PCP Family Medicine; Referring Provider Family Medicine; Visit Provider Nurse Practitioner Adult Health | DX: G43.009 Migraine without aura, not intractable, without status migrainosus (principal); G43.109 Migraine with aura, not intractable, without status migrainosus | CPT/HCPCS: 99212; 99213 ==

== ENCOUNTER 2021-12-26 09:23 | Emergency (ER) | payer MEDICARE, MEDICAID, SELFPAY ==
--- OUTSIDE RECORDS SUMMARY | 2021-12-26 09:27 | XMS_ITS | Encounter Summary ---
:1985 Author Organization [facility] Address [address] [place] [address] Care Team Providers Name Role Phone Cora Philip MD Primary Care Provider Encounter Details Date Type Department Care Team Description 05/16/2021 Lab Requisition [facility] Outr Resulting Lab, Pathology & Laboratory Provider [facility] [address], [place] [address] Social History Tobacco Use Types Packs/Day Years Used Date Smoking Tobacco: Never Assessed Sex Assigned at Date Recorded Not on file documented as of this encounter Plan of Treatment Not on filedocumented as of this encounter Procedures Procedure Name Priority Date/Time Associated Diagnosis Comme nts HEPATITIS C AB W Routine 05/15/2021 14:25 Results for this REFLEX TO HCV RNA EDT procedure are in BY PCR the results section. documented in this encounter Results HEPATITIS C AB W REFLEX TO HCV RNA BY PCR (05/15/2021 14:25 EDT) Analysis Performed At Patho logist Time Signature Hep C Antibody Negative Negative 05/18/2021 [facility] 10:46 EDT [facility] Specimen Anatomical Collection Method Collection Time Receive d Time (Source) Location / / Volume Laterality Blood VENOUS BLOOD / 05/15/2021 14:25 Unknown EDT 15:42 EDT Provider Outr Resulting Lab CHEMISTRY & BLOOD GAS TAN MITCHELL Performing Organization Address City/State/ZIP Code Phon e Number [facility] [address] [place] [address] SERVICES documented in this encounter Visit Diagnoses Not on filedocumented in this encounter Care Teams Speaker Wirer Relationship Specialty Start Date End Date Cora Philip MD PCP - General 02/14/[address] [place] [id number] documented as of this encounter
--- OUTSIDE RECORDS SUMMARY | 2021-12-26 09:27 | XMS_ITS | Encounter Summary ---
:1985 Author Organization [facility] Address [address] [place] [address] Care Team Providers Name Role Phone Cora Philip MD Primary Care Provider Encounter Details Date Type Department Care Team Description 02/23/2021 Lab Requisition [facility] Anny Acute appendicitis Pathology & Nathalia Orantes DO with localized Laboratory Medicine [address] [facility], without - [address] perforation or [address] [facility], [place] [address] [place] [phone] Social History Tobacco Use Types Packs/Day Years Used Date Smoking Tobacco: Never Assessed Sex Assigned at Date Recorded Not on file documented as of this encounter Plan of Treatment Not on filedocumented as of this encounter Procedures Procedure Name Priority Date/Time Associated Diagnosis Comme nts SURGICAL PATHOLOGY Today 02/22/2021 16:30 Acute appendicitis Results for this EST with localized procedure are in peritonitis, without the res ults perforation or section. gangrene documented in this encounter Results SURGICAL PATHOLOGY (02/22/2021 16:30 EST) Component Value Ref Test Analysis Performed At [facility] Range Method Time Signature Note to The following 02/26/2021 [facility] Patient pathology results 11:31 [facility] have been LABORATORY interpreted by SERVICES your pathologist and may be available to you before your health provider has had the opportunity to review them. Please allow time for your provider to receive these results and explore management options, if applicable. Final A. APPENDIX, APPENDECTOMY: 02/26/2021 [facility] Diagnosis - Acute appendicitis and periappendicitis. 11:31 [facility] LABORATORY SERVICES Attestation There was 02/26/2021 [facility] Elect ronically significant 11:31 [facility] signed b y resident/fellow LABORATORY Denise Birch, involvement in SERVICES on 02/26/2021 the diagnostic at 11 31 evaluation of this case. By the signature below, the attending physician certifies that they have personally conducted a gross and/or microscopic examination of the described specimens and rendered or confirmed the above diagnosis. Clinical Acute appendicitis with loca lized peritonitis, without perforation or gangrene; clinical diagnosis code: K35.30 02/26/2021 [facility] History 11:31 [facility] LAB[facility]AT[facility] SERVICES Gross A. 02/26/2021 [facility] Description Received in formalin naomi d with proper patient identification (initials F, T) and appendix is an appendix (7.3 cm in length x 0.9 cm in diameter), with a moderate amount of attached mesoappendix. The proximal margin is stapled. 11:31 [facility] The serosa is dusky bowers an d covered with a film of white exudate. The cut surface is white and reveals focally black centers as well a focal region of bowers, suppurative fat attached to the middle port LABORATORY ion of the appendix. The ave rage wall thickness is 0.2 cm. A perforation site is not identified. The lumen ranges from 0.1 cm to 0.3 cm in diameter. A fecalith is not identified. The proximal margin is inked blue. SERVICES The section adjacent to the stapled proximal margin, 2 public service representative cross sections and one half of the longitudinally bisected distal tip are submitted in A1. HARRISON MOON MD PhD 02/24/2021 13:58 Resident/Zeke Moon, 02/26/2021 [facility] w: MD Harrison PhD 11:31 [facility] LABORATORY SERVICES Performing Lab [facility] 02/26/2021 [facility] AL LAB 11: [facility] LAB[facility]AT[facility] SERVICES Scanned Images 02/26/2021 [facility] 11:31 [facility] LABORAT[facility] SERVICES Specimen Anatomical Collection Method Collection Time Receive d Time (Source) Location / / Volume Laterality Tissue ENTIRE APPENDIX / 02/22/2021 16:30 2021 Unknown EST 17:03 EST Nathalia Mccormick DO PATHOLOGY ORDERABLES Performing Organization Address City/State/ZIP Code Phon e Number [facility] [address] [place] [id number] SERVICES documented in this encounter Visit Diagnoses Diagnosis Acute appendicitis with localized perito nitis, without perforation or gangrene documented in this encounter Care Teams Data Processing Auditor Relationship Specialty Start Date End Date Cora Philip MD PCP - General 02/14/[address] [place] [phone] documented as of this encounter
--- OUTSIDE RECORDS SUMMARY | 2021-12-26 09:27 | XMS_ITS | Encounter Summary ---
:1985 Author Organization [facility] Address [address] [place] [address] Care Team Providers Name Role Phone Cora Philip MD Primary Care Provider Encounter Details Date Type Department Care Team Description 05/16/2021 Lab Requisition [facility] Outr Resulting Lab, Pathology & Laboratory Provider [facility] [address] [place], [place] [id number] Social History Tobacco Use Types Packs/Day Years Used Date Smoking Tobacco: Never Assessed Sex Assigned at Date Recorded Not on file documented as of this encounter Plan of Treatment Not on filedocumented as of this encounter Procedures Procedure Name Priority Date/Time Associated Comments Diagnosis HIV 1/2 ANTIGEN AND Routine 05/15/2021 14:25 Resu lts for this ANTIBODY, 4TH EDT procedure are in GENERATION the results section. documented in this encounter Results HIV 1/2 ANTIGEN AND ANTIBODY, 4TH GENERATION (05/15/2021 14:25 EDT) [facility] Method Time Signature HIV 1 and 2 Negative Negative 05/18/2021 [facility] Antibody/p24 10:35 EDT CENTER Antigen, 4th LABORATORY Generation SERVICES Comment: If acute HIV-1 infection is lake pected in a high risk patient, submit plasma specimen for HIV-1 RNA quantitation test . Specimen Anatomical Collection Method Collection Time Receive d Time (Source) Location / / Volume Laterality Blood VENOUS BLOOD / 05/15/2021 14:25 2 Unknown EDT 15:42 EDT Narrative [facility] LABORATORY SERVICES - 05/18/2021 10:35 EDT Fourth Generation assay performed on the Siemens Getonicaur XPT. Provider Outr Resulting Lab IMMUNOLOGY AND SEROLOGY OR DERABLES Performing Organization Address City/State/[facility] Code Phon e Number [email or web address] [address] [place] [address] SERVICES documented in this encounter Visit Diagnoses Not on filedocumented in this encounter Care Teams District Wildlife Manager Relationship Specialty Start Date End Date Cora Philip MD PCP - General 02/14/[address] [place] [phone] documented as of this encounter
--- OUTSIDE RECORDS SUMMARY | 2021-12-26 09:27 | XMS_ITS | Clinical Summary ---
:1985 Author Organization [facility] Address [address] [place] [address] Care Team Providers Name Role Phone Cora Philip MD Primary Care Provider Social History Tobacco Use Types Packs/Day Years Used Date Smoking Tobacco: Never Assessed Sex Assigned at Date Recorded Not on file Plan of Treatment Health Maintenance Due Date Last Done Comments COVID-19 Vaccine (1) 06/22/1991 Hepatitis C Screen Completed 05/15/2021 Insurance Payer Benefit Plan / Subscriber ID Effective Phone Address T ype Group Dates MEDICARE MEDICARE A/B [id number] 2006-Prese [address] Medicare nt [facility] [place] [address] [place] [id number] 2021-Prese [address] Medicaid [facility] [id number] Monique Velasquez Personal/Family Self 1985 [phone] (Home) [address] [place] [address] Monique Velasquez Personal/Family Self 1985 [phone] ([address]) [address] [place] [address] Care Teams File Keeper Relationship Specialty Start Date End Date Cora Philip MD PCP - General 02/14/[address] [place] [phone]
--- NOTE | 2021-12-26 09:30 | DI.CT_ITS ---
Exam(s) CT ABDOMEN PELVIS W EXAM: CT ABDOMEN PELVIS W CLINICAL HISTORY: left lower abdomen pain. TECHNIQUE: Imaging Protocol: Axial computed tomography images with coronal and sagittal reformatted images were created and reviewed CONTRAST MATERIAL: Intravenous: Omnipaque 100cc Oral: None COMPARISON: CT CT ABDOMEN PELVIS W from 02/22/2021 FINDINGS: VISUALIZED LUNG BASES: No nodules nor pleural effusions evident. ABDOMEN: There is no ascites. LIVER: Again noted be hypodense implying steatosis. No discrete focal hepatic lesions identified. N o dilated intrahepatic ducts. GALLBLADDER/BILIARY: No obvious calcified gallstones but the gallbladder wall appears thickened and t here is some pericholecystic fluid. CBD is not dilated. PANCREAS: No evidence of pancreatic mass nor dilatation of the pancreatic duct. SPLEEN: Spleen is not enlarged. No obvious intrasplenic lesions. Splenic and portal veins are paten t. ADRENALS: There are no significant adrenal masses. KIDNEYS:No cysts evident. No solid renal masses. Solitary 3 millimeter calculus in lower pole right kidney her. No hydronephrosis but the left ureter is minimally prominent throughout the length of i ts course, some mild streaking. Probably infectious. There are no radiopaque calculi in the nondist ended urinary bladder. ABDOMINAL AORTA: Abdominal aorta is not enlarged. LYMPH NODES:There is no retroperitoneal nor paraaortic adenopathy. ABDOMINAL WALL: No evidence of significant anterior abdominal wall nor inguinal hernia. GI: There is no evidence of bowel obstruction, free air, nor abscess. PELVIS: GI: The appendix is surgically absent.No evidence of sigmoid diverticulitis. LYMPH NODES: There is no intrapelvic nor inguinal adenopathy. REPRODUCTIVE: Uterus unremarkable. Both ovaries appear age-appropriate URINARY BLADDER: No calculi nor obvious masses evident OSSEOUS: No significant osseous lesions. IMPRESSION: 1. Gallbladder is abnormal, appearing edematous and with some pericholecystic fluid. No obvious calc ified gallstones. Nevertheless, suspect acute gallbladder pathology. CBD is not dilated. 2. Mild left-sided ureteral thickening enhancement. Possibly related to infection. There is no radi opaque calculus. 3. Other findings as above. First read by [facility]. Final report called by myself to ER 12/26/2021 5:35 p.m. RADIATION DOSE DELIVERED: 1,522.46mGy.cm Total DLP DATA REPOSITORY: All CT scans at this facility are submitted to the National Radiology Data Registry (NRDR) Dose Index Registry (DIR) with the [employer] (ACR). RADIATION OPTIMIZATION: All CT scans at this facility use at least one of these dose optimization te chniques: automated exposure control; mA and/or kV adjustment per patient size (includes targeted exa ms where dose is matched to clinical indication); or iterative reconstruction.
[2021-12-26 09:33] VITALS: BP 180/90; PULSE 70; RESP 20; TEMP 37; O2SAT 99
--- NOTE | 2021-12-26 09:44 | ED.GENADUL_ITS ---
Discharge Plan Disposition Patient Disposition: HOME Condition: Stable Discharge Details Clinical Impression: Abdominal pain, left lower quadrant Primary Care Provider: Cora Philip ED Provider: Patrice Guevara Home Meds and New Rx's Prescriptions: New ciprofloxacin HCl 500 mg tablet 500 mg PO BID Qty: 14 0RF ondansetron 4 mg tablet,disintegrating 4 mg PO Q8H PRN (Reason: nausea and vomiting) Qty: 30 0RF Continued magnesium oxide 400 mg (241.3 mg magnesium) tablet 400 mg PO DAILY vitamin B complex [B Complex 1] tablet 1 tab PO DAILY sumatriptan succinate 100 mg tablet See Rx Instructions PO .COMPLEX Qty: 10 3RF Rx Instructions: take 1 tab at onset of headache; if no relief, may repeat 1 tab after at least 2 hrs; max = 2 tabs/24 hrs PO Aimovig Autoinjector 140 mg/mL auto-injector 140 mg subcut QMONTH Qty: 1 11RF acetazolamide 250 mg tablet See Rx Instructions PO BID Qty: 270 3RF Rx Instructions: 250 mg morning, 250 mg evening levothyroxine 88 MCG tablet 88 mcg PO DAILY Hair,Skin and Nails 1 EACH tablet 1 ea PO DAILY levalbuterol tartrate [Xopenex HFA] 15 GM HFA aerosol inhaler 45 mcg Inhalation Q6H PRN omega-3 fatty acids-fish oil 1 EACH capsule 1 ea PO DAILY Discharge Instructions Additional Instructions: Your cat scan showed your bladder and ureter which connects to the kidney was inflammed. This can indicate either a urinary tract infection or that you may have had a small kidney stone if symptoms continue this week follow up with your primary care provider if you feel more ill, have severe worsening pain, persistent vomiting or fevers return to the emergency department Medical Decision Making 36 yo female with hx of migraines, asthma, hypothyroidism, who comes in with chief complaint of abdominal pain in the llq for 3 hours. She states she felt well yesterday, denies any recent diarrhea, abdominal discomfort, or urinary symptoms. She denies fevers, chills, chest pain, dyspnea, vaginal bleeding or discharge. She is stable on arrival though is dry heaving. She has no cva tenderness on exam, no upper abdominal tenderness, is tender in the llq no rebound or guarding. Given location of pain concern for diverticulitis but given rapid onset of symptoms also concern for kidney stone. Will obtain cbc, cmp, lipase and ct abdomen/pelvis to further evaluate. ct shows left renal pelvis and ureteral as well as bladder thickening with fat standing, contracted gallbladder has no ruq tenderness at all and lfts unremarkable. She has no pain on reassessment, ua not convincing of uti but given ct findings will cover with cipro. No renal stone seen but suspect she could have had a small stone that has passed given rapid onset of symptoms and now symptoms resolved. She has no abdominal tenderness on exam. She is stable for d/c, she will f/u with pcp if symptoms continue, return precautions given Differential Diagnosis Differential Diagnosis: diverticulitis, kidney stone, ovarian cyst Medical Records Medical records reviewed: Yes I reviewed the patient's medical records. Imaging Data Radiologic Study: Attestation: I personally reviewed and interpreted this imaging study as follows: Imaging: CT Scan Radiologist's impression: IMPRESSION: 1. Mild left renal pelvis and ureteral urothelial thickening/enhancement with adjacent fat stranding suggestive of infectious/inflammatory process. Additionally, there is diffuse mild bladder wall thickening. Recommend correlation with urinalysis. 2. Mild gallbladder wall thickening without radiopaque stones or pericholecystic fluid. Findings could reflect a partially contracted gallbladder due to nonfasting state. Consider further evaluation with right upper quadrant ultrasound if clinically warranted Lab Data Lab results reviewed: Yes I reviewed the patient's lab results. HPI General Mode of arrival: ambulatory . Date/Time Provider Initiated Documentation: 12/26/21 09:28 . Limitations to Documentation: no limitations . Information obtained by: patient . History of Present Illness 36 year old F presents to the emergency department with the chief complaint of abdominal pain, described as moderate, Quality is described as stabbing, and is localized to the abdomen. Patient reports no radiation. Patient started experiencing this hour(s) (3) and it has been constant. No relieving factors improve symptom(s), No exacerbating factors reported . Patient notes nausea/vomiting; denies fever/chills. Patient did receive the following treatments prior to arrival, none Related Data Home Medications Medication Instructions Recorded Confirmed levalbuterol tartrate 45 45 mcg inhalation Q6H PRN 10/03/17 12/26/21 mcg/actuation aerosol inhaler (Xopenex HFA) levothyroxine 88 mcg tablet 88 mcg PO DAILY 10/03/17 12/26/21 multivitamin with minerals 1 ea PO DAILY 10/03/17 12/26/21 (Hair,Skin and Nails tablet) omega-3 fatty acids-fish oil 300 1 ea PO DAILY 10/03/17 12/26/21 mg-1,000 mg capsule magnesium oxide 400 mg (241.3 mg 400 mg PO DAILY 11/16/17 12/26/21 magnesium) tablet vitamin B complex (B Complex 1 1 tab PO DAILY 04/20/18 12/26/21 tablet) erenumab-aooe 140 mg/mL 140 mg subcut QMONTH #1 mL 08/20/21 12/26/21 subcutaneous auto-injector (Aimovig Autoinjector) sumatriptan succinate 100 mg tablet See Rx Instructions PO .COMPLEX 09/21/21 12/26/21 #10 tabs acetazolamide 250 mg tablet See Rx Instructions PO BID #270 12/03/21 12/26/21 tabs ciprofloxacin HCl 500 mg tablet 500 mg PO BID #14 tabs 12/26/21 ondansetron 4 mg disintegrating 4 mg PO Q8H PRN nausea and 12/26/21 tablet vomiting #30 tabs Previous Rx's Medication Instructions Recorded erenumab-aooe 140 mg/mL 140 mg subcut QMONTH #1 mL 08/20/21 subcutaneous auto-injector (Aimovig Autoinjector) sumatriptan succinate 100 mg tablet See Rx Instructions PO .COMPLEX 09/21/21 #10 tabs acetazolamide 250 mg tablet See Rx Instructions PO BID #270 12/03/21 tabs ciprofloxacin HCl 500 mg tablet 500 mg PO BID #14 tabs 12/26/21 ondansetron 4 mg disintegrating 4 mg PO Q8H PRN nausea and 12/26/21 tablet vomiting #30 tabs Allergies Allergy/AdvReac Type Severity Reaction Status Date / Time house dust Allergy Mild Verified 12/26/21 10:06 pollen extracts Allergy Unverified 12/26/21 10:06 wheat AdvReac Intermediate Rash Verified 12/26/21 10:06 General Stated Complaint: Abd Prob EMMETT: 3 Review of Systems All systems reviewed & are unremarkable except as noted in HPI and below Constitutional Constitutional: Denies chills and Denies fever(s) Cardiovascular Cardiovascular: Denies chest pain and Denies dyspnea Respiratory Respiratory: Denies cough and Denies dyspnea Musculoskeletal Musculoskeletal: Denies joint swelling Integumentary/Breasts Skin/Breast: Denies rash PFSH All Active Problems (Updated 12/26/21 @ 11:11 by Patrice Guevara MD) Abdominal pain, left lower quadrant (Acute) Gluten intolerance (Chronic) Depression (Chronic) Polycystic ovarian syndrome (Chronic) Asthma (Chronic) Hypothyroidism (Chronic) Obesity (BMI 30-39.9) (Chronic) Migraine headache without aura (Chronic) Migraine aura without headache (Chronic) Surgical History History of laparoscopic appendectomy (~02/22/21) Other dental procedure status wisdom tooth extraction Family History Mother Headache Diabetes Hypertension Thyroid disease Depression Fibromyalgia Social History Smoking/Tobacco Use Status: Never Smoking risk assessment performed?: Yes Alcohol Intake: current Alcohol Intake frequency: holidays/special occasions only Drug use: Never Substance use type: does not use Household members: family Housing: apartment Current gender identity: female How often do you get together with friends or relatives?: decline to answer Do you feel safe at home: Yes Do you feel safe in your relationship?: Yes Additional Social history: She lives in an apartment below her mother. She d oes not drive (has no car). Exam Const General: no acute distress Orientation: alert [facility] Head: normal to inspection Ears: external ears normal General nose exam: external nose normal Mouth: moist mucous membranes Eyes General: appearance normal, both eyes and all related structures Neck Neck: normal visual inspection Resp Effort & Inspection: normal respiratory effort and able to speak in complete sentences Cardio Rate: regular rate GI Palpation: soft and tender Skin General skin exam: no rashes or lesions noted Neuro General: patient alert and patient oriented x3 Extrem General: normal to inspection Psych Mental Status: mental status grossly normal Course Vital Signs Vital signs: Vital Signs Pulse 70 12/26/21 09:33 Respiratory Rate 20 12/26/21 09:33 Blood Pressure 180/90 H 12/26/21 09:33 Pulse Oximetry 99 12/26/21 09:33 Temperature Source Temporal Artery Scan 12/26/21 09:33 Pulse 70 12/26/21 09:33 Respiratory Rate 20 12/26/21 09:33 Blood Pressure 180/90 H 12/26/21 09:33 Pulse Oximetry 99 12/26/21 09:33 Oxygen Delivery Method Room Air 12/26/21 09:33 Oxygen Flow Rate 0 12/26/21 09:33 Pain Level 10 12/26/21 09:33
[2021-12-26] MEDS: Ondansetron 4 MG/2 ML VIAL IVP (09:49)
[2021-12-26] MEDS: Ketorolac 15 MG/ML VIAL IVP (09:49)
[2021-12-26] MEDS: Normal Saline 1,000 ML 1000 ML IV (09:49)
[2021-12-26 10:06] LABS: Abs Immature Grans 0.05 10^3/uL (0.0-0.06); Absolute Basophil Count 0.04 10^3/uL (0.0-0.2); Absolute Eosinophil Count 0.08 10^3/uL (0.0-0.7); Absolute Neutrophil Count 9.96 10^3/uL (1.2-6.7); Basophils % 0.3; Eosinophils % 0.6; HCT 41.7 % (36.0-46.0); HGB 13.4 g/dL (11.2-15.7); Immature Grans % 0.4; Lymphocytes % 17.8; MCHC 32.1 % (32.0-36.0); MCV 90 fL (80-95); MPV 9.8 fL (8.0-11.0); Monocytes % 3.3; Neutrophils % 77.6; Platelet Count 299 10^3/uL (130-400); RBC 4.62 10^6/uL (3.93-5.22); RDW-SD 43.5 fL; WBC 12.84 10^3/uL (4.4-10.8)
[2021-12-26 10:09] LABS: Source Nasal/Nares
[2021-12-26 10:16] LABS: Absolute Lymphocyte Count 2.29 10^3/uL (1.2-3.4); Absolute Monocyte Count 0.42 10^3/uL (0.1-0.8)
[2021-12-26 10:25] LABS: ALT 21 U/L (14-59); AST 12 U/L (15-37); Albumin 3.9 g/dL (3.4-5.0); Alkaline Phosphatase 62 U/L (46-116); Anion Gap 12.2 mmol/L (3-11); BUN 21 mg/dL (7-18); Bilirubin, Total 0.3 mg/dL (0.2-1.0); CO2 22.8 mmol/L (21.0-32.0); CREATININE 1.2 mg/dL (0.55-1.02); Calcium 9.4 mg/dL (8.5-10.1); Chloride 108 mmol/L (98-107); Estimated GFR 60.54 (mL/min/1.73m2); Glucose 193 mg/dL (74-106); Lipase 121 U/L (73-393); Magnesium 1.8 mg/dL (1.8-2.4); Potassium 3.8 mmol/L (3.5-5.1); Sodium 143 mmol/L (136-145); Total Protein 8.1 g/dL (6.4-8.2)
[2021-12-26 10:39] LABS: Bilirubin Negative (Negative); Blood Large (Negative); Clarity Sl Cloudy (Clear); Glucose Negative (Negative); Ketones Negative (Negative); Leukocyte Esterase Negative (Negative); Nitrite Negative (Negative); Specific Gravity >= 1.030 (1.005-1.025); Urobilinogen 0.2 EU/dL (Up TO 0.2)
[2021-12-26] MEDS: Normal Saline - Diluent 50 ML VIAL IV (10:39)
[2021-12-26] MEDS: Omnipaque 350 MG/ML 100 ML BTL IJ (10:39)
[2021-12-26 10:42] LABS: COVID-19 PCR Negative (Negative)
[2021-12-26 10:50] LABS: Epithelial Cells Few HPF (Negative); RBC >50 HPF (0-2); WBC 0-2 HPF (0-5)
[2021-12-26 10:51] LABS: Bacteria Rare HPF (Negative); C & S Indicated? No; Casts 0-2 Hyaline LPF (Negative); Crystals Negative HPF (Negative); Mucus Moderate (Negative); Other Cells Rare Yeast (Negative)
--- NOTE | 2021-12-26 10:58 | DI.VRAD_ITS ---
PROCEDURE INFORMATION: Exam: CT Abdomen And Pelvis With Contrast Exam date and time: 12/26/2021 10:31 AM Age: 36 years old Clinical indication: Pain; Other: Llq; Additional info: HX pcos TECHNIQUE: Imaging protocol: Computed tomography of the abdomen and pelvis with contrast. COMPARISON: CT ABDOMEN PELVIS W 02/22/2021 10:42 AM FINDINGS: Liver: Focal fatty deposition along the falciform ligament. Gallbladder and bile ducts: Mild diffuse gallbladder wall thickening. No radiopaque stones or pericholecystic fluid evident. Pancreas: Normal. No ductal dilation. Spleen: Normal. No splenomegaly. Adrenal glands: Normal. No mass. Kidneys and ureters: 3 mm nonobstructing stone in the lower pole of the right kidney. Mild dilation of the right pelvicalyceal system without significant ureteral dilation, unchanged. Mild left renal pelvis and ureteral urothelial thickening/enhancement with fat stranding about the proximal ureter. No obstructing stone identified within the left ureter. No perinephric fat stranding Stomach and bowel: Unremarkable. No obstruction. No mucosal thickening. Appendix: The appendix is surgically absent. Intraperitoneal space: Scarring within the anterior abdominal midline. Vasculature: Unremarkable. No abdominal aortic aneurysm. Lymph nodes: Unremarkable. No enlarged lymph nodes. Urinary bladder: Diffuse mild bladder wall thickening, though it is partially decompressed. Reproductive: Unremarkable as visualized. Bones/joints: Unremarkable. No acute fracture. Soft tissues: Unremarkable. IMPRESSION: 1. Mild left renal pelvis and ureteral urothelial thickening/enhancement with adjacent fat stranding suggestive of infectious/inflammatory process. Additionally, there is diffuse mild bladder wall thickening. Recommend correlation with urinalysis. 2. Mild gallbladder wall thickening without radiopaque stones or pericholecystic fluid. Findings could reflect a partially contracted gallbladder due to nonfasting state. Consider further evaluation with right upper quadrant ultrasound if clinically warranted. Dictated and Authenticated by: Tyrell Black MD. Ordering:BETHANY Ibrahim MD
[2021-12-26] MEDS: Ciprofloxacin 500 MG TAB PO (11:08)
--- NOTE | 2021-12-26 13:30 | NUR.NOTE ---
Nursing Note:Pt notified of negative covid test.
== END 2021-12-26 11:51 | disposition home or self-care (01) ==
PROVIDERS: Emergency Provider Emergency Medicine; PCP Family Medicine
DX: R10.32 Left lower quadrant pain (principal); R93.41 Abnormal radiologic findings on diagnostic imaging of renal pelvis, ureter, or bladder; J45.909 Unspecified asthma, uncomplicated; Z20.822 Contact with and (suspected) exposure to COVID-19
CPT/HCPCS: 80053; 81025; 83690; 87635; 96361; 96374; 96375; 99284; 99285; 74177; 81003; 81015; 83735; 85025; J1885; J2405; J3490

== ENCOUNTER → 2022-02-03 00:59 | Outpatient (CLI) | payer MEDICARE, MEDICAID, SELFPAY ==
--- NOTE | 2022-02-03 14:50 | DI.RAD_ITS ---
Exam(s) XR HIP RT COMPLETE AP PELVIS EXAM: XR HIP RT COMPLETE AP PELVIS CLINICAL HISTORY: RT HIP PAIN, M25.551. TECHNIQUE: 2D digital imaging was performed. COMPARISON: No exams were available for comparison FINDINGS: Two views: No evidence of pelvic nor hip fracture. No hip joint space narrowing. Lateral view of the right hip reveals no bony excrescence. No prominent osteophytes. No further joint space narrowing. IMPRESSION: No significant findings. DATA REPOSITORY: RADIATION DOSE DELIVERED:
== END ==
PROVIDERS: PCP Family Medicine; Visit Provider Family Medicine
DX: M25.551 Pain in right hip (principal)
CPT/HCPCS: 73502

== ENCOUNTER 2022-05-11 16:55 | Outpatient (REF) | payer MEDICARE, MEDICAID, SELFPAY ==
[2022-05-10 21:50] LABS: Abs Immature Grans 0.02 10^3/uL (0.0-0.06); Absolute Basophil Count 0.03 10^3/uL (0.0-0.2); Absolute Eosinophil Count 0.15 10^3/uL (0.0-0.7); Absolute Monocyte Count 0.36 10^3/uL (0.1-0.8); Absolute Neutrophil Count 5.27 10^3/uL (1.2-6.7); Basophils % 0.3; Eosinophils % 1.7; HCT 43.2 % (36.0-46.0); HGB 14.1 g/dL (11.2-15.7); Immature Grans % 0.2; Lymphocytes % 32.4; MCH 28.5 pg (27.0-33.0); MCHC 32.6 % (32.0-36.0); MCV 87 fL (80-95); MPV 10.3 fL (8.0-11.0); Monocytes % 4.2; Neutrophils % 61.2; Platelet Count 336 10^3/uL (130-400); RBC 4.95 10^6/uL (3.93-5.22); RDW 13.7 % (11.7-14.6); WBC 8.63 10^3/uL (4.4-10.8)
[2022-05-10 22:15] LABS: Hemoglobin A1C 5.9 % (<5.7)
[2022-05-10 22:16] LABS: Anion Gap 11.2 mmol/L (3-11); BUN 12 mg/dL (7-18); CO2 20.8 mmol/L (21.0-32.0); CREATININE 0.9 mg/dL (0.55-1.02); Calcium 9.1 mg/dL (8.5-10.1); Chloride 110 mmol/L (98-107); Glucose 114 mg/dL (74-106); Sodium 142 mmol/L (136-145)
== END 2022-05-11 16:56 | disposition home or self-care (01) ==
LOC: NCHCN 16:55
PROVIDERS: PCP Family Medicine; Visit Provider Family Medicine
DX: Z00.00 Encounter for general adult medical examination without abnormal findings (principal); R73.03 Prediabetes; E03.9 Hypothyroidism, unspecified; R42 Dizziness and giddiness
CPT/HCPCS: 80048; 83036; 84443; 85025

== ENCOUNTER → 2022-06-03 13:57 | Outpatient (BNVA) | payer MEDICARE, MEDICAID, SELFPAY | PROVIDERS: PCP Family Medicine; Visit Provider Nurse Practitioner Adult Health | DX: R51.9 Headache, unspecified (principal); R42 Dizziness and giddiness; F41.9 Anxiety disorder, unspecified | CPT/HCPCS: 99213; 99214; J1885; 96372 ==

== ENCOUNTER → 2022-07-14 11:01 | Outpatient (BNVA) | payer MEDICARE, MEDICAID, SELFPAY | PROVIDERS: PCP Family Medicine; Referring Provider Family Medicine; Visit Provider Nurse Practitioner Adult Health | DX: G43.009 Migraine without aura, not intractable, without status migrainosus (principal) | CPT/HCPCS: 99213; 99214 ==

== ENCOUNTER → 2022-08-31 12:26 | Outpatient (BNVA) | payer MEDICARE, MEDICAID, SELFPAY | PROVIDERS: PCP Family Medicine; Referring Provider Family Medicine; Visit Provider Nurse Practitioner Adult Health | DX: G43.009 Migraine without aura, not intractable, without status migrainosus (principal); F39 Unspecified mood [affective] disorder | CPT/HCPCS: 99213 ==

== ENCOUNTER → 2022-11-30 12:42 | Outpatient (BNVA) | payer MEDICARE, MEDICAID, SELFPAY | PROVIDERS: PCP Family Medicine; Referring Provider Family Medicine; Visit Provider Nurse Practitioner Adult Health | DX: G43.009 Migraine without aura, not intractable, without status migrainosus (principal); R42 Dizziness and giddiness; F41.9 Anxiety disorder, unspecified; G47.9 Sleep disorder, unspecified; G43.109 Migraine with aura, not intractable, without status migrainosus | CPT/HCPCS: 99214 ==

== ENCOUNTER 2023-03-11 15:03 | Outpatient (REF) | payer MEDICARE, MEDICAID, SELFPAY ==
[2023-03-11 19:23] LABS: Abs Immature Grans 0.01 10^3/uL (0.0-0.06); Absolute Basophil Count 0.05 10^3/uL (0.0-0.2); Absolute Eosinophil Count 0.12 10^3/uL (0.0-0.7); Absolute Monocyte Count 0.36 10^3/uL (0.1-0.8); Absolute Neutrophil Count 4.61 10^3/uL (1.2-6.7); Basophils % 0.7; Eosinophils % 1.6; HCT 45.7 % (36.0-46.0); HGB 14.9 g/dL (11.2-15.7); Immature Grans % 0.1; Lymphocytes % 30.9; MCH 28.9 pg (27.0-33.0); MCHC 32.6 % (32.0-36.0); MCV 89 fL (80-95); MPV 10.4 fL (8.0-11.0); Monocytes % 4.8; Neutrophils % 61.9; Platelet Count 298 10^3/uL (130-400); RBC 5.15 10^6/uL (3.93-5.22); RDW 13.2 % (11.7-14.6); RDW-SD 43.4 fL; WBC 7.45 10^3/uL (4.4-10.8)
[2023-03-11 19:46] LABS: Hemoglobin A1C 5.4 % (<5.7)
[2023-03-11 20:03] LABS: ALT 29 U/L (14-59); AST 22 U/L (15-37); Alkaline Phosphatase 70 U/L (46-116); Anion Gap 14.1 mmol/L (3-11); BUN 10 mg/dL (7-18); Bilirubin, Total 0.4 mg/dL (0.2-1.0); CO2 17.9 mmol/L (21.0-32.0); CREATININE 0.8 mg/dL (0.55-1.02); Calcium 9.1 mg/dL (8.5-10.1); Chloride 107 mmol/L (98-107); Estimated GFR 97.87 (mL/min/1.73m2); Ferritin 238 ng/mL (8-252); Glucose 123 mg/dL (74-106); Iron 129 ug/dL (50-170); Potassium 3.9 mmol/L (3.5-5.1); Sodium 139 mmol/L (136-145); TSH (W/Ref FT4) 1.33 uIU/mL (0.36-3.74); Total Iron Binding Capacity 425 ug/dL (250-450); Total Protein 8.4 g/dL (6.4-8.2); Transferrin Sat 30 % (15-50)
== END 2023-03-11 15:04 | disposition home or self-care (01) ==
LOC: NCHCN 15:03
PROVIDERS: PCP Family Medicine; Visit Provider Nurse Practitioner Family
DX: R10.9 Unspecified abdominal pain (principal)
CPT/HCPCS: 80053; 82306; 82728; 83036; 83540; 83550; 84443; 85025

== ENCOUNTER → 2023-05-04 13:33 | Outpatient (BNVA) | payer MEDICARE, MEDICAID, SELFPAY | PROVIDERS: PCP Family Medicine; Referring Provider Family Medicine; Visit Provider Nurse Practitioner Adult Health | DX: G43.109 Migraine with aura, not intractable, without status migrainosus (principal); R42 Dizziness and giddiness; G43.009 Migraine without aura, not intractable, without status migrainosus | CPT/HCPCS: 99214 ==

== ENCOUNTER 2023-09-26 18:48 | Outpatient (REF) | payer MEDICARE, MEDICAID, SELFPAY ==
--- NOTE | 2023-09-26 15:00 | PAPFT_PTH ---
PATIENT: Monique Velasquez LOC: [facility]#:[id number] AGE/SX: 38/F ROOM: RE09/26/[address]: Kya Gustafson : 1985 BED: DIS: 09/26/2023 SPEC #: [id number] RECD: 09/26/23 18:51 STATUS: VADIM REQ #: [id number] JD: 09/26/23 15:[address]: Kya Gustafson DEPT: [facility] Cytology RECD BY: Nela Salazar Tissues: 1 - CX/ENDOCX FOR PAP SMEARS Procedures: PAP THIN PREP/UVM Screening HPV DNA PROBE Comments: [id number] (HPV 16 & 18/45)
--- OUTSIDE RECORDS SUMMARY | 2023-09-26 18:50 | XMS_ITS | Clinical Summary ---
Author Organization [facility] Address [address] [place] [address] Care Team Providers Care Family Law Attorney Name Role Phone Cora Philip MD Primary Care Provider [phone] Social History Tobacco Use Types Packs/Day Years Used Date Smoking Tobacco: Never Assessed Sex and Gender Information Value Date Recorded Sex Assigned at Not on file Gender Identity Not on file Sexual Orientation Not on file Plan of Treatment Health Maintenance Due Date Last Done Comments Hepatitis B Vaccine (1 of - 19+ 3-dose series) 06/21 COVID-19 Vaccine ( season) 2022 Hepatitis C Screen Completed 05/15/2021 Procedures Procedure Name Priority Date/Time Associated Diagnosis Comments HEPATITIS C AB W REFLEX TO HCV RNA BY PCR Routine 05/15/2021 14:25 EDT from Last 3 Months or Most Recently Relevant to Health Maintenance Results * HEPATITIS C AB W REFLEX TO HCV RNA BY PCR (05/15/2021 14:25 EDT) Hep C Antibody Negative Negative 05/18/2021 10:46 EDT [facility] Blood VENOUS BLOOD / Unknown 05/15/2021 14:25 EDT 05/17/2021 15:42 EDT Provider Outr Resulting Lab CHEMISTRY & BLOOD GAS ORDERABLES [facility] [address] [place] [address] from Last 3 Months or Most Recently Relevant to Health Maintenance Care Teams Family Law Attorney Relationship Specialty Start Date End Date Cora Philip MD [address] [place] [address] PCP - General 02/14/21
--- OUTSIDE RECORDS SUMMARY | 2023-09-26 18:50 | XMS_ITS | Encounter Summary ---
Author Organization [facility] Address [address] [place] [address] Care Team Providers Care Wincher Name Role Phone Cora Philip MD Primary Care Provider Encounter Details Date Type Department Care Team (Late st Contact Info) Description 05/16/2021 Lab Requisition [facility] Pathology & Laboratory Medicine - [facility] [address] [place], [place] [address] Outr Resulting Lab, Provider Social History Tobacco Use Types Packs/Day Years Used Date Smoking Tobacco: Never Assessed Sex and Gender Information Value Date Recorded Sex Assigned at Not on file Gender Identity Not on file Sexual Orientation Not on file documented as of this encounter Plan of Treatment Not on file documented as of this encounter Procedures Procedure Name Priority Date/Time Associated Diagnosis Comments HEPATITIS C AB W REFLEX TO HCV RNA BY PCR Routine 05/15/2021 14:25 EDT documented in this encounter Results * HEPATITIS C AB W REFLEX TO HCV RNA BY PCR (05/15/2021 14:25 EDT) Hep C Antibody Negative Negative 05/18/2021 10:46 EDT [facility] Blood VENOUS BLOOD / Unknown 05/15/2021 14:25 EDT 05/17/2021 15:42 EDT Provider Outr Resulting Lab CHEMISTRY & BLOOD GAS ORDERABLES [facility] [address] [place] [address] documented in this encounter Visit Diagnoses Not on filedocumented in this encounter Care Teams Wincher Relationship Specialty Start Date End Date Cora Philip MD [address] [place] [phone] PCP - General 02/14/21 documented as of this encounter
--- OUTSIDE RECORDS SUMMARY | 2023-09-26 18:50 | XMS_ITS | Encounter Summary ---
Author Organization [facility] Address [address] [place] [address] Care Team Providers Care Salvager Name Role Phone Cora Philip MD Primary Care Provider [phone] Encounter Details Date Type Department Care Team (Late st Contact Info) Description 02/23/2021 Lab Requisition [facility] Pathology & Laboratory Medicine - [facility] [address] [place] [address] Nathalia Mccormick, DO [address] [facility] [place] [address] Acute appendicitis with localized peritonitis, without perforation or gangrene Social History Tobacco Use Types Packs/Day Years Used Date Smoking Tobacco: Never Assessed Sex and Gender Information Value Date Recorded Sex Assigned at Not on file Gender Identity Not on file Sexual Orientation Not on file documented as of this encounter Plan of Treatment Not on file documented as of this encounter Procedures Procedure Name Priority Date/Time Associated Diagnosis Comments SURGICAL PATHOLOGY Today 02/22/2021 16 :30 EST Acute appendicitis with localized peritonitis, without perforation or gangrene documented in this encounter Results * SURGICAL PATHOLOGY (02/22/2021 16:30 EST) Note to Patient The following pathology results have been interpreted by your pathologist and may be available to you before your health provider has had the opportunity to review them. Please allow time for your provider to receive these results and explore management options, if applicable. 02/26/2021 11:31 EST [facility] Final Diagnosis A. APPENDIX, APPENDECTOMY: - Acute appendicitis and periappendicitis. 02/26/2021 11:31 [facility] Attestation There was significant resident/fellow involvement in the diagnostic evaluation of this case. By the signature below, the attending physician certifies that they have personally conducted a gross and/or microscopic examination of the described specimens and rendered or confirmed the above diagnosis. 02/26/2021 11:31 [facility] at 1131 Clinical History Acute appendicitis with localized peritonitis, without perforation or gangrene; clinical diagnosis code: K35.30 02/26/2021 11:31 [facility] Gross Description A. Received in formalin labelled with proper patient identification (initials F, T) and appendix is an appendix (7.3 cm in length x 0.9 cm in diameter), with a moderate amount of attached mesoappendix. The proximal margin is stapled. The serosa is dusky bowers and covered with a film of white exudate. The cut surface is white and reveals focally black centers as well a focal region of bowers, suppurative fat attached to the middle portion of the appendix. The average wall thickness is 0.2 cm. A perforation site is not identified. The lumen ranges from 0.1 cm to 0.3 cm in diameter. A fecalith is not identified. The proximal margin is inked blue. The section adjacent to the stapled proximal margin, 2 technical service representative cross sections and one half of the longitudinally bisected distal tip are submitted in A1. HARRISON MOON MD PhD 02/24/2021 13:58 02/26/2021 11:31 [facility] Resident/Zeke w: Harrison Moon MD PhD 02/26/2021 11:31 [facility] Performing Lab [facility] 02/26/2021 11:31 [facility] Scanned Images 02/26/2021 11:31 [facility] Tissue ENTIRE APPENDIX / Unknown 02/22/2021 16:30 EST 02/23/2021 17:03 EST Nathalia Mccormick DO PATHOLOGY ORDER FERNANDO [facility] [address] [place] [address] documented in this encounter Visit Diagnoses Diagnosis Acute appendicitis with localized peritonitis, without perforation or gangrene documented in this encounter Care Teams Salvager Relationship Specialty Start Date End Date Cora Philip MD [address] [place] [phone] PCP - General 02/14/21 documented as of this encounter
--- OUTSIDE RECORDS SUMMARY | 2023-09-26 18:50 | XMS_ITS | Encounter Summary ---
Author Organization [facility] Address [address] [place] [address] Care Team Providers Care Research Neuropsychologist Name Role Phone Cora Philip MD Primary Care Provider [phone] Encounter Details Date Type Department Care Team (Late st Contact Info) Description 05/16/2021 Lab Requisition [facility] Pathology & Laboratory Medicine - [facility] [address] [place] [address] Outr Resulting Lab, Provider Social History Tobacco [...] Procedure Name Priority Date/Time Associated Diagnosis Comments HIV 1/2 ANTIGEN AND ANTIBODY, 4TH GENERATION Routine 05/15/2021 14:25 EDT documented in this encounter Results * HIV 1/2 ANTIGEN AND ANTIBODY, 4TH GENERATION (05/15/2021 14:25 EDT) HIV 1 and 2 Antibody/p24 Antigen, 4th Generation Negative Negative 05/18/2021 10:35 EDT [facility] Comment:If acute HIV-1 infec tion is suspected in a high risk patient, submit plasma specimen for HIV-1 RNA quantitation test. Blood VENOUS BLOOD / Unknown 05/15/2021 14:25 EDT 05/17/2021 15:42 EDT Narrative [facility] - 05/18/2021 10:35 EDT Fourth Generation assay performed on the Siemens Razzaur XPT. Provider Outr Resulting Lab IMMUNOLOGY A ND SEROLOGY ORDERABLES [facility] [address] [place] [address] documented in this encounter Visit Diagnoses Not on filedocumented in this encounter Care Teams Research Neuropsychologist Relationship Specialty Start Date End Date Cora Philip MD [address] [place] [phone] PCP - General 02/14/21 documented as of this encounter
--- OUTSIDE RECORDS SUMMARY | 2023-09-26 18:50 | XMS_ITS | Referral Summary ---
Author Organization [facility] Address [address] [place] [address] Care Team Providers Care Resolution Agent Name Role Phone Cora Philip MD Primary Care Provider [phone] Social History Tobacco Use Types Packs/Day Years Used Date Smoking Tobacco: Never Assessed Sex and Gender Information Value Date Recorded Sex Assigned at Not on file Gender Identity Not on file Sexual Orientation Not on file Plan of Treatment Not on file Procedures Procedure Name Priority Date/Time Associated Diagnosis Comments HEPATITIS C AB W REFLEX TO HCV RNA BY PCR Routine 05/15/2021 14:25 EDT from Last 3 Months or Most Recently Relevant to Health Maintenance Results * HEPATITIS C AB W REFLEX TO HCV RNA BY PCR (05/15/2021 14:25 EDT) Hep C Antibody Negative Negative 05/18/2021 10:46 EDT [facility] Blood VENOUS BLOOD / Unknown 05/15/2021 14:25 EDT 05/17/2021 15:42 EDT Provider Outr Resulting Lab CHEMISTRY & BLOOD GAS ORDERABLES [facility] [address] [place] [address] from Last 3 Months or Most Recently Relevant to Health Maintenance Care Teams Resolution Agent Relationship Specialty Start Date End Date Cora Philip MD [address] [phone] PCP - General 02/14/21
[2023-09-26 20:16] LABS: Hemoglobin A1C 5.6 % (<5.7)
[2023-09-26 20:28] LABS: Calculated LDL 129 mg/dL (<100); Cholesterol 209 mg/dL (<200); HDL Cholesterol 56 mg/dL (40-60); Triglyceride 122 mg/dL (<150); Vitamin D 25 Total 56.5 ng/mL (30-100)
== END 2023-09-26 18:49 | disposition home or self-care (01) ==
LOC: NCHCN 18:48
PROVIDERS: PCP Nurse Practitioner Family; Visit Provider Nurse Practitioner Family
DX: Z12.4 Encounter for screening for malignant neoplasm of cervix (principal); R73.03 Prediabetes; E55.9 Vitamin D deficiency, unspecified
CPT/HCPCS: 80061; 82306; 88142; 83036; 87624

== ENCOUNTER → 2023-11-02 13:02 | Outpatient (BNVA) | payer MEDICARE, MEDICAID, SELFPAY | PROVIDERS: PCP Nurse Practitioner Family; Referring Provider Nurse Practitioner Family; Visit Provider Nurse Practitioner Adult Health | DX: G43.009 Migraine without aura, not intractable, without status migrainosus (principal); G43.109 Migraine with aura, not intractable, without status migrainosus | CPT/HCPCS: 99213 ==

== ENCOUNTER → 2024-05-02 13:05 | Outpatient (BNVA) | payer MEDICARE, MEDICAID, SELFPAY | PROVIDERS: PCP Nurse Practitioner Family; Referring Provider Nurse Practitioner Family; Visit Provider Nurse Practitioner Adult Health | DX: R00.0 Tachycardia, unspecified (principal); G43.109 Migraine with aura, not intractable, without status migrainosus; G43.009 Migraine without aura, not intractable, without status migrainosus; R42 Dizziness and giddiness | CPT/HCPCS: 99214 ==

== ENCOUNTER 2024-05-14 17:00 | Outpatient (REF) | payer MEDICARE, MEDICAID, SELFPAY ==
[2024-05-14 20:04] LABS: TSH 1.08 uIU/mL (0.36-3.74); Vitamin D 25 Total 63 ng/mL (30-100)
== END 2024-05-14 17:01 | disposition home or self-care (01) ==
LOC: NCHCN 17:00
PROVIDERS: PCP Nurse Practitioner Family; Visit Provider Nurse Practitioner Family
DX: R00.2 Palpitations (principal); E55.9 Vitamin D deficiency, unspecified
CPT/HCPCS: 82306; 84443

== ENCOUNTER 2024-06-26 13:34 | Outpatient (CLI) | payer MEDICARE, MEDICAID, SELFPAY | END 2024-06-26 13:35 | disposition home or self-care (01) | PROVIDERS: PCP Nurse Practitioner Family; Visit Provider Nurse Practitioner Family | DX: R00.2 Palpitations (principal) | CPT/HCPCS: 93270 ==

== ENCOUNTER 2024-07-26 13:13 | Outpatient (CLI) | payer MEDICARE, MEDICAID, SELFPAY ==
--- NOTE | 2024-07-26 13:20 | W.CARDEVENT ---
Date of service: 07/26/24 Time of Service: 13:20 Cardiac Event Recorder Referring Provider:: Kya Mckinney Indications:: Palpitations Cardiac Event Note: This is a cardiac event monitor. Patient was monitored for 30 days. Rhythm throughout was sinus. Average heart rate overall was 83. Minimum was 62, maximum 160 There were no significant atrial or ventricular dysrhythmias, no atrial fibrillation, no high-grade AV block, no pauses greater than 3 seconds. No symptoms were reported
== END 2024-07-26 13:14 | disposition home or self-care (01) ==
LOC: CARDOPNVT 13:13
PROVIDERS: PCP Nurse Practitioner Family; Visit Provider Internal Medicine Cardiovascular Disease
DX: R00.2 Palpitations (principal)
CPT/HCPCS: 93272

== ENCOUNTER → 2024-10-24 14:01 | Outpatient (BNVA) | payer MEDICARE, MEDICAID, SELFPAY | PROVIDERS: PCP Nurse Practitioner Family; Referring Provider Nurse Practitioner Family; Visit Provider Nurse Practitioner Adult Health | DX: G43.009 Migraine without aura, not intractable, without status migrainosus (principal) | CPT/HCPCS: 99214 ==